=== PATIENT | male | born 1980 | race American Indian/Alaskan Native ===

== ENCOUNTER 2017-01-16 09:56 | Inpatient (IN) | payer OTHER ==
[2017-01-16 10:01] VITALS: BMI 32.5
[2017-01-16] MEDS ORDERED: Sodium Chloride 0.9% 1,000 ML IV STA (10:08)
[2017-01-16] MEDS ORDERED: EnalaprilAT 1.25 mg/ml Inj IVP STA (10:10)
[2017-01-16] MEDS ORDERED: Ciprofloxacin 400mg/200ml D5W 400 MG/200 ML BAG IVPB STA (10:10)
[2017-01-16] MEDS ORDERED: metroNIDAZOLE IV 500 mg/100 ml 500 MG/100 ML BAG IVPB STA (10:11)
--- NOTE | 2017-01-16 10:21 | ED PDOC ---
Arrival/HPI - General Chief Complaint: Abdominal Pain Time Seen by Provider: 01/16/17 10:03 Historian: Patient - History of Present Illness Narrative History of Present Illness (Text): 01/16/17 10:07 A 36 year old male, whose past medical history includes hypertension, presents to the emergency department complaining of left lower quadrant abdominal pain since yesterday. Patient denies any nausea, vomiting, diarrhea, radiation, symptoms, or any other complaints at this time. Patient states he has hypertension but he stopped taking his medication on his own because he did not like how it made him feel. Patient is a smoker and occasional drinks but does not use drugs. Time/Duration: 24 hours Symptom Onset: Sudden Symptom Course: Unchanged Quality: Other Activities at Onset: Rest Context: Home Associated Symptoms (Text): 01/16/17 12:01 Patient developed left lower quadrant abdominal pain yesterday. No nausea vomiting or diarrhea. No genitourinary symptoms. Known hypertension. He stopped taking all of his medications on his own. Past Medical History - Provider Review Nursing Documentation Reviewed: Yes - Infectious Disease Hx of Infectious Diseases: None - Tetanus Immunization Tetanus Immunization: Unknown - Past Medical History Past Medical History: No Previous - Cardiac Hx Hypertension: Yes - Pulmonary Hx Asthma: Yes - Psychiatric Hx Depression: No Hx Emotional Abuse: No Hx Physical Abuse: No Hx Substance Use: No - Past Surgical History Past Surgical History: No Previous - Suicidal Assessment Feels Threatened In Home Enviroment: No Family/Social History - Physician Review Nursing Documentation Reviewed: Yes Family/Social History: Unknown Family HX Smoking Status: Current Some Days Smoker Hx Alcohol Use: Yes Frequency of alcohol use: Socially Hx Substance Use: No Allergies/Home Meds Allergies/Adverse Reactions: Allergies No Known Allergies Allergy (Verified 01/16/17 10:01) Home Medications: Home Meds Medication Instructions Recorded Confirmed No Known Home Med 01/16/17 01/16/17 Review of Systems - Physician Review All systems were reviewed & negative as marked: Yes - Review of Systems Constitutional: Fatigue. absent: Fevers Respiratory: absent: SOB, Cough, Sputum, Wheezing Cardiovascular: absent: Chest Pain, Palpitations, Syncope Gastrointestinal: Abdominal Pain. absent: Diarrhea, Nausea, Vomiting Genitourinary Male: absent: Dysuria, Frequency, Hematuria, Urinary Output Changes Neurological: absent: Headache, Dizziness, Focal Weakness Physical Exam Vital Signs Reviewed: Yes Vital Signs Temp Pulse Resp BP Pulse Ox 01/16/17 12:26 79 16 157/97 H 99 01/16/17 12:13 160/111 H 01/16/17 11:12 97 H 18 172/98 H 98 01/16/17 09:56 98 F 105 H 18 179/123 H 98 Temperature: Afebrile Blood Pressure: Hypertensive Pulse: Tachycardic Respiratory Rate: Normal Appearance: Positive for: Well-Appearing, Non-Toxic, Uncomfortable Pain Distress: Moderate Mental Status: Positive for: Alert and Oriented X 3 - Systems Exam Head: Present: Atraumatic, Normocephalic Pupils: Present: PERRL Extroacular Muscles: Present: EOMI Conjunctiva: Present: Normal Mouth: Present: Moist Mucous Membranes Pharnyx: No: ERYTHEMA, EXUDATE, TONSILS ENLARGED Neck: Present: Normal Range of Motion Respiratory/Chest: Present: Clear to Auscultation, Good Air Exchange. No: Respiratory Distress, Accessory Muscle Use Cardiovascular: Present: Normal S1, S2, Tachycardic. No: Murmurs Abdomen: Present: Tenderness (moderate tenderness with palpation to the left lower quadrant), Normal Bowel Sounds, Guarding. No: Distention, Peritoneal Signs, Rebound Back: No: CVA Tenderness Upper Extremity: Present: Normal Inspection. No: Cyanosis, Edema Lower Extremity: Present: Normal Inspection. No: Edema Neurological: Present: GCS=15, CN II-XII Intact, Speech Normal, Motor Func Grossly Intact Skin: Present: Warm, Dry, Normal Color. No: Rashes Psychiatric: Present: Alert, Oriented x 3, Normal Insight, Normal Concentration Medical Decision Making ED Course and Treatment: 01/16/17 10:07 Impression: A 36 year old male with left lower quadrant pain. Differential Diagnosis include but are not limited to: Colitis vs. IBS vs. Diverticulitis vs. Gastritis Plan: -- EKG -- Abdomen/Pelvis CT -- Chest X-ray -- Labs -- Urinalysis -- Ciprofloxacin, Metronidazole, Pepcid, Toradol, Vasotec and IV Fluids -- Reassess and disposition Progress Notes: 01/16/17 12:02 EKG shows normal sinus rhythm rate approximately [address] or T-wave changes 01/16/17 12:49 Discussed with who will admit to . His resident has been called - Lab Interpretations Lab Results: 01/16/17 11:50 01/16/17 11:50 Lab Results 01/16/17 11:50: Sodium 136, Potassium 3.7, Chloride 98, Carbon Dioxide 27, Anion Gap 15, BUN 8, Creatinine 0.7, Est GFR ( Amer) > 60, Est GFR (Non- Af Amer) > 60, Random Glucose 104, Calcium 9.8, Total Bilirubin 1.4 H, AST 41, ALT 82 H, Alkaline Phosphatase 77, Lactate Dehydrogenase 400, Total Creatine Kinase 294 H, CK-MB (CK-2) 1.2, CK-MB (CK-2) % Cancelled, Troponin I < 0.01, Total Protein 7.2, Albumin 4.0, Globulin 3.2, Albumin/Globulin Ratio 1.3, Amylase 176 H, Lipase 1357 H 01/16/17 11:50: PT 11.1, INR 1.03, APTT 27.8 01/16/17 11:50: WBC 6.6, RBC 6.58 H, Hgb 15.2, Hct 44.6, MCV 67.8 L, MCH 23.1 L , MCHC 34.1, RDW 14.9 H, Plt Count 207, MPV 10.6, Gran % 71.0 H, Lymph % (Auto) 18.4 L, [place] % (Auto) 6.3 H, Eos % (Auto) 4.1, Baso % (Auto) 0.2, Gran # 4.70, Lymph # 1.2, [place] # 0.4, Eos # 0.3, Baso # 0.01 I have reviewed the lab results: Yes - RAD Interpretation Radiology Orders: 01/16/17 10:08 ABD & PELVIS W/O PO OR IV CONT [CT] Stat 01/16/17 10:09 CHEST PORTABLE [RAD] Stat - Medication Orders Current Medication Orders: Sodium Chloride (Sodium Chloride 0.9%) 1,000 mls @ 100 mls/hr IV .Q10H STA Stop: 01/16/17 20:07 Last Admin: 01/16/17 12:02 Dose: 100 mls/hr Discontinued Medications Enalaprilat (Vasotec Iv) 2.5 mg IVP STAT STA Stop: 01/16/17 10:11 Last Admin: 01/16/17 12:13 Dose: 2.5 mg Famotidine (Pepcid) 20 mg IVP STAT STA Stop: 01/16/17 10:09 Last Admin: 01/16/17 12:01 Dose: 20 mg Ciprofloxacin (Cipro 400mg/200ml Dsw) 400 mg in 200 mls @ 133.3 mls/hr IVPB STAT STA PRN Reason: Protocol Stop: 01/16/17 11:40 Metronidazole (Flagyl) 500 mg in 100 mls @ 100 mls/hr IVPB STAT STA PRN Reason: Protocol Stop: 01/16/17 11:10 Last Admin: 01/16/17 12:13 Dose: 100 mls/hr Ketorolac Tromethamine (Toradol) 15 mg IVP STAT STA Stop: 01/16/17 10:09 Last Admin: 01/16/17 12:02 Dose: 15 mg - Scribe Statement The provider has reviewed the documentation as recorded by the Danteibvi Olivares Provider Scribe Attestation: All medical record entries made by the Danteibvi were at my direction and personally dictated by me. I have reviewed the chart and agree that the record accurately reflects my personal performance of the history, physical exam, medical decision making, and the department course for this patient. I have also personally directed, reviewed, and agree with the discharge instructions and disposition. Disposition/Present on Arrival - Present on Arrival Any Indicators Present on Arrival: No History of DVT/PE: No History of Uncontrolled Diabetes: No Urinary Catheter: No History of Decub. Ulcer: No History Surgical Site Infection Following: None - Disposition Have Diagnosis and Disposition been Completed?: Yes Diagnosis: Pancreatitis, Hypertension Disposition: HOSPITALIZED Disposition Time: 12:50 Patient Plan: Admission, Telemetry Condition: FAIR Referrals: Jacklyn Ortega MD [Primary Care Provider] - Follow up with primary
--- NOTE | 2017-01-16 11:18 | CT ---
PROCEDURE: CT Abdomen and Pelvis without intravenous contrast HISTORY: LLQ pain COMPARISON: None. TECHNIQUE: Without contrast. Contrast Dose: Radiation dose: Total exam DLP = 768 mGy-cm. This CT exam was performed using one or more of the following dose reduction techniques: Automated exposure control, adjustment of the mA and/or kV according to patient size, and/or use of iterative reconstruction technique. FINDINGS: LOWER THORAX: Unremarkable. LIVER: There is severe fatty infiltration of the liver and hepatomegaly. The liver measures 25 cm transversely and 22 cm in height. GALLBLADDER AND BILE DUCTS: Unremarkable. PANCREAS: Unremarkable. No gross lesion or ductal dilatation. SPLEEN: Unremarkable. ADRENALS: Unremarkable. No mass. KIDNEYS AND URETERS: Unremarkable. No hydronephrosis. No solid mass. VASCULATURE: Unremarkable. No aortic aneurysm. BOWEL: Unremarkable. No obstruction. No gross mural thickening. APPENDIX: Unremarkable. Normal appendix. PERITONEUM: Unremarkable. No free fluid. No free air. LYMPH NODES: Unremarkable. No enlarged lymph nodes. BLADDER: Unremarkable. REPRODUCTIVE: Unremarkable. BONES: No acute fracture. OTHER FINDINGS: None. IMPRESSION: Severe hepatomegaly and fatty infiltration of the liver.
--- NOTE | 2017-01-16 11:19 | RAD ---
HISTORY: ap COMPARISON: No prior. FINDINGS: LUNGS: No active pulmonary disease. PLEURA: No significant pleural effusion identified, no pneumothorax apparent. CARDIOVASCULAR: Normal. OSSEOUS STRUCTURES: No significant abnormalities. VISUALIZED UPPER ABDOMEN: Normal. OTHER FINDINGS: None. IMPRESSION: No active disease.
[2017-01-16 12:04] LABS: ADD MANUAL DIFF? NO
[2017-01-16 12:09] LABS: BASO # 0.01 K/mm3 (0.0-2.0); BASO % 0.2 % (0.0-3.0); EOS # 0.3 (0.0-0.7); EOS % 4.1 % (1.5-5.0); HEMATOCRIT 44.6 % (42.0-52.0); LYMPH # 1.2 (1.2-3.4); LYMPH % 18.4 % (22.0-35.0); MEAN CELL VOLUME 67.8 fL (80.0-105.0); MEAN CORPUSCULAR HEMOGLOBIN 23.1 pg (25.0-35.0); MEAN CORPUSCULAR HGB CONC 34.1 g/dl (31.0-37.0); MEAN PLATELET VOLUME 10.6 fl (7.0-11.0); MONO # 0.4 (0.1-0.6); MONO % 6.3 % (1.0-6.0); PLATELET COUNT 207 10^3/uL (120.0-450.0); RED CELL DISTRIBUTION WIDTH 14.9 % (11.5-14.5); WHITE BLOOD COUNT 6.6 10^3/ul (4.5-11.0)
[2017-01-16 12:18] LABS: ALB/GLOB RATIO 1.3 (1.1-1.8); ALKALINE PHOSPHATASE 77 U/L (38-133); ALT/SGPT 82 U/L (7-56); AMYLASE 176 U/L (35-125); AST/SGOT 41 U/L (15-59); BILIRUBIN,TOTAL 1.4 mg/dL (0.2-1.3); BLOOD UREA NITROGEN 8 mg/dL (7-21); CALCIUM 9.8 mg/dL (8.4-10.5); CARBON DIOXIDE 27 mmol/L (21-33); CHLORIDE 98 mmol/L (98-107); GFR AFRICAN-AMERICAN > 60; GLUCOSE,RANDOM 104 mg/dL (70-110); LIPASE 1357 U/L (23-300); POTASSIUM 3.7 mmol/L (3.6-5.0); SODIUM 136 mmol/L (132-148); TOTAL PROTEIN 7.2 g/dL (5.8-8.3)
[2017-01-16 12:20] LABS: INR 1.03 (0.93-1.08); PARTIAL THROMBOPLASTIN TIME 27.8 Seconds (23.7-30.8)
[2017-01-16 12:29] LABS: TROPONIN I < 0.01 ng/mL
[2017-01-16 12:56] LABS: PH,URINE 6.5 (4.7-8.0); URINE APPEARANCE CLEAR (CLEAR); URINE BILIRUBIN NEGATIVE (NEGATIVE); URINE BLOOD NEGATIVE (NEGATIVE); URINE COLOR YELLOW (YELLOW); URINE GLUCOSE (UA) NEGATIVE (NEGATIVE); URINE KETONE TRACE mg/dL (NEGATIVE); URINE LEUKOCYTE ESTERASE NEGATIVE Leu/uL (NEGATIVE); URINE PROTEIN 30 mg/dL (<30 mg/dL); URINE UROBILINOGEN 0.2 E.U./dL (<1 E.U./dL)
[2017-01-16 13:04] LABS: URINE BACTERIA FEW (NEG); URINE EPITHELIAL CELLS 0 - 2 /hpf (0-5); URINE RBC NEGATIVE /hpf (0-2); URINE WBC 0 - 2 /hpf (0-6)
--- NOTE | 2017-01-16 14:02 | CP.PCM.HP ---
<Cherry William - Last Filed: 01/16/17 15:20> History of Present Illness - History of Present Illness History of Present Illness: CC: My stomach hurts. Patient is a 36 y/o with PMH of htn, medical non compliance, presenting with left upper quadrant and epigastric pain for 2 days. Patient states the abdominal pain started yesterday, and was accompanied with bloating. The abdominal pain radiates to the back. Patient states he tried taking gas x, peptobismol and laxative with some relief. This AM while at work, the abdominal pain returned, and when he ate bagel the abdominal pain got worst, thus patient decided to come to the ER. Patient admits to nausea, denies vomiting, or diarrhea. Patient denies cp, sob, dysurea, hematuria. Patient admits to constipation. Patient admits to heavy drinking in the past, last alcohol was 2 months ago. Patient reports he has h/o htn, last time he saw PMD was 2 years ago, and has not taking antihypertensive since then. Patient denies headache, dizziness. PMH: htn PSH: None FMH: mom with htn and heart problem. Dad of unknown cause. Allergy: NKDA Home meds: none. Present on Admission - Present on Admission Any Indicators Present on Admission: No History of DVT/PE: No History of Uncontrolled Diabetes: No Urinary Catheter: No Decubitus Ulcer Present: No Review of Systems - Review of Systems All systems: reviewed and no additional remarkable complaints except Review of Systems: As stated in HPI. Past Patient History - Infectious Disease Hx of Infectious Diseases: None - Tetanus Immunizations Tetanus Immunization: Unknown - Past Social History Smoking Status: Light Smoker < 10 Cigarettes Daily Alcohol: Other (former) Drugs: Denies Home Situation {Lives}: With Family - CARDIAC Hx Hypertension: Yes - PULMONARY Hx Asthma: Yes - PSYCHIATRIC Hx Depression: No Hx Emotional Abuse: No Hx Physical Abuse: No Hx Substance Use: No - SURGICAL HISTORY Hx Surgeries: No Meds Allergies/Adverse Reactions: Allergies Allergy/AdvReac Type Severity Reaction Status Date / Time No Known Allergies Allergy Verified 01/16/17 10:01 Physical Exam - Constitutional Appears: No Acute Distress - Head Exam Head Exam: ATRAUMATIC, NORMAL INSPECTION, NORMOCEPHALIC - Eye Exam Eye Exam: EOMI, Normal appearance, PERRL. absent: Scleral icterus - ENT Exam ENT Exam: Mucous Membranes Dry - Neck Exam Neck exam: Positive for: Full Rom, Normal Inspection - Respiratory Exam Respiratory Exam: Clear to Auscultation Bilateral, NORMAL BREATHING PATTERN. absent: Rales, Rhonchi, Wheezes, Respiratory Distress, Stridor - Cardiovascular Exam Cardiovascular Exam: Tachycardia, REGULAR RHYTHM, RRR, +S1, +S2. absent: Systolic Murmur - GI/Abdominal Exam GI & Abdominal Exam: Normal Bowel Sounds, Soft, Tenderness (LUQ and epigastric region.). absent: Distended, Guarding, Rigid - Extremities Exam Extremities exam: Positive for: normal inspection - Back Exam Back exam: NORMAL INSPECTION - Neurological Exam Neurological exam: Alert, Oriented x3 - Psychiatric Exam Psychiatric exam: Normal Affect, Normal Mood - Skin Skin Exam: Dry, Intact, Normal Color, Warm Results - Vital Signs Recent Vital Signs: Last Vital Signs Temp 98 F 01/16/17 09:56 Pulse 79 01/16/17 12:26 Resp 16 01/16/17 12:26 BP 157/97 H 01/16/17 12:26 Pulse Ox 99 01/16/17 12:26 - Labs Result Diagrams: 01/16/17 11:50 01/16/17 11:50 Labs: Laboratory Results - last 24 hr 01/16/17 01/16/17 01/16/17 11:50 11:50 11:50 WBC 6.6 RBC 6.58 H Hgb 15.2 Hct 44.6 MCV 67.8 L MCH 23.1 L MCHC 34.1 RDW 14.9 H Plt Count 207 MPV 10.6 Gran % 71.0 H Lymph % (Auto) 18.4 L [place] % (Auto) 6.3 H Eos % (Auto) 4.1 Baso % (Auto) 0.2 Gran # 4.70 Lymph # 1.2 [place] # 0.4 Eos # 0.3 Baso # 0.01 PT 11.1 INR 1.03 APTT 27.8 Sodium 136 Potassium 3.7 Chloride 98 Carbon Dioxide 27 Anion Gap 15 BUN 8 Creatinine 0.7 Est GFR ( Amer) > 60 Est GFR (Non-Af Amer) > 60 Random Glucose 104 Calcium 9.8 Total Bilirubin 1.4 H AST 41 ALT 82 H Alkaline Phosphatase 77 Lactate Dehydrogenase 400 Total Creatine Kinase 294 H CK-MB (CK-2) 1.2 CK-MB (CK-2) % Cancelled Troponin I < 0.01 Total Protein 7.2 Albumin 4.0 Globulin 3.2 Albumin/Globulin Ratio 1.3 Amylase 176 H Lipase 1357 H Urine Color Urine Appearance Urine pH Ur Specific [place] Urine Protein Urine Glucose (UA) Urine Ketones Urine Blood Urine Nitrate Urine Bilirubin Urine Urobilinogen Ur Leukocyte Esterase Urine RBC Urine WBC Ur Epithelial Cells Urine Bacteria 01/16/17 12:50 WBC RBC Hgb Hct MCV MCH MCHC RDW Plt Count MPV Gran % Lymph % (Auto) [place] % (Auto) Eos % (Auto) Baso % (Auto) Gran # Lymph # [place] # Eos # Baso # PT INR APTT Sodium Potassium Chloride Carbon Dioxide Anion Gap BUN Creatinine Est GFR ( Amer) Est GFR (Non-Af Amer) Random Glucose Calcium Total Bilirubin AST ALT Alkaline Phosphatase Lactate Dehydrogenase Total Creatine Kinase CK-MB (CK-2) CK-MB (CK-2) % Troponin I Total Protein Albumin Globulin Albumin/Globulin Ratio Amylase Lipase Urine Color Yellow Urine Appearance Clear Urine pH 6.5 Ur Specific [place] 1.010 Urine Protein 30 H Urine Glucose (UA) Negative Urine Ketones Trace H Urine Blood Negative Urine Nitrate Negative Urine Bilirubin Negative Urine Urobilinogen 0.2 Ur Leukocyte Esterase Negative Urine RBC Negative Urine WBC 0 - 2 Ur Epithelial Cells 0 - 2 Urine Bacteria Few - EKG Data EKG Interpreted by: Myself EKG shows normal: Sinus rhythm - EKG Data EKG comments: Non pathologic Q wave on lead II, III, and AVF. LVH. Assessment & Plan - Assessment and Plan (Free Text) Assessment: Patient is a 36 y/o with pmh of htn presenting with LUQ abdominal and epigastric pain. Plan: 1)Intractable left upper and epigastric pain radiating to the back likely secondary to pancreatitis - Less likely urinary calculi, or gastritis. - Amylase and lipase elevated at 176/1357. - Ct abdomen and pelvis with severe hepatomegaly and fatty infiltration. - will obtain abdominal u/s to evaluate for cholelithiasis - will obtain utox - npo except meds - zofran prn for nausea/vomiting - Tramadol prn for pain. 2) Transaminitis - Ct result as mentioned above. - hep panel - abdominal u/s - hiv test 3) uncontrolled htn - will start po Norvasc 5 mg and adjust accordingly. 4) DVT and Gi prophylaxis: Heparin sc, and protonix. Patient seen, examined, case discussed with Dr Linares. - Date & Time Date: 01/16/17 Time: 15:05 <Ifeanyi Linares - Last Filed: 02/04/17 18:56> Results - Vital Signs Recent Vital Signs: Last Vital Signs Temp 98.1 F 01/17/17 16:00 Pulse 89 01/17/17 16:00 Resp 20 01/17/17 16:00 BP 141/97 H 01/17/17 16:00 Pulse Ox 98 01/17/17 16:00 - Labs Result Diagrams: 01/18/17 07:00 01/18/17 07:00 Attending/Attestation - Attestation I have personally seen and examined this patient.: Yes I have fully participated in the care of the patient.: Yes I have reviewed all pertinent clinical information: Yes Notes (Text): 02/04/17 18:56 Medical record note made by the resident after discussion with my direction and input after the patient was personally seen and examined by me. I have reviewed the chart and agree that the record accurately reflects by personal performance of the history, physical exam, data review, and medical decision-making, in the course for the patient. I have also personally directed the plan of care.
[2017-01-16] MEDS: Sodium Chloride 0.9% 1,000 ML IV SCH ×2 (15:57→21:24)
--- NOTE | 2017-01-16 16:00 | US ---
HISTORY: pancreatitis COMPARISON: None. TECHNIQUE: Sonographic evaluation of the abdomen. FINDINGS: LIVER: Measures 20 cm. Diffusely increased echogenicity of the liver parenchyma. Consistent with fatty infiltration. Smooth contour. No mass. No intrahepatic biliary dilatation. GALLBLADDER: Unremarkable. No gallstones. COMMON BILE DUCT: Measures 5 mm. No stones. No dilatation. PANCREAS: Unremarkable as visualized. No mass. No ductal dilatation. RIGHT KIDNEY: Measures 10.5cm. Normal echogenicity. No calculus, mass, or hydronephrosis. LEFT KIDNEY: Measures 11.2cm. Normal echogenicity. No calculus, mass, or hydronephrosis. SPLEEN: Normal in size and contour. No mass. AORTA: No aneurysmal dilatation. IVC: Unremarkable. OTHER FINDINGS: None. IMPRESSION: Mild hepatomegaly with diffuse fatty infiltration. Otherwise unremarkable examination. No sonographic evidence of acute pancreatitis.
[2017-01-16] MEDS ORDERED: Pneumococcal 23-Valent Vaccine IM ONE (20:10)
[2017-01-16] MEDS ORDERED: HYDROmorphone 0.5 mg/0.5 ml ISec IVP STA (21:02)
--- NOTE | 2017-01-16 22:40 | CARD ---
APPROVED REPORT EKG Measurement Heart [id number] <Conclusion> Normal sinus rhythm Normal ECG
[2017-01-17] MEDS ORDERED: Pantoprazole 40 mg EC Tab PO SCH (06:30)
[2017-01-17 06:41] VITALS: O2SAT 98
--- NOTE | 2017-01-17 06:42 | CP.PCM.PN ---
<Cherry William - Last Filed: 01/17/17 11:33> Subjective - Date & Time of Evaluation Date of Evaluation: 01/17/17 Time of Evaluation: 07:25 - Subjective Subjective: Medicine progress note for Dr Baxter and Dr Linares. Patient c/o abdominal pain overnight and was giving dose of dilaudid. Patient still c/o abdominal pain, 03/12. Patient admits to nausea, denies vomiting, diarrhea. Patient denies cp, sob, headache or dizziness. Objective - Vital Signs/Intake and Output Vital Signs (last 24 hours): Temp Pulse Resp BP Pulse Ox 98.1 F 81 18 162/103 H 98 01/17/17 06:00 01/17/17 06:00 01/17/17 06:00 01/17/17 06:00 01/17/17 06:00 Intake and Output: 01/16/17 01/17/17 18:59 06:59 Intake Total 0 Output Total 1900 Balance -1900 - Medications Medications: Current Medications Amlodipine Besylate (Norvasc) 10 mg PO DAILY [facility] Heparin Sodium (Porcine) (Heparin) 5,000 units SC Q12 REAL PRN Reason: Protocol Last Admin: 01/16/17 21:23 Dose: 5,000 units Sodium Chloride (Sodium Chloride 0.9%) 1,000 mls @ 150 mls/hr IV .Q6H40M [facility] Last Admin: 01/16/17 21:24 Dose: 150 mls/hr Nicotine (Nicoderm Cq) 1 patch TD DAILY [facility] Ondansetron HCl (Zofran Inj) 4 mg IVP Q4H PRN PRN Reason: Nausea/Vomiting Pantoprazole Sodium (Protonix Ec Tab) 40 mg PO 0630 [facility] Tramadol HCl (Ultram) 50 mg PO Q8 PRN PRN Reason: Pain, moderate (4-7) Last Admin: 01/16/17 17:22 Dose: 50 mg - Labs Labs: PT 11.1 Seconds (9.9-11.8) 01/16/17 11:50 INR 1.03 (0.93-1.08) 01/16/17 11:50 APTT 27.8 Seconds (23.7-30.8) 01/16/17 11:50 - Constitutional Appears: No Acute Distress - Head Exam Head Exam: ATRAUMATIC, NORMAL INSPECTION, NORMOCEPHALIC - Eye Exam Eye Exam: Normal appearance, PERRL. absent: Scleral icterus - ENT Exam ENT Exam: Mucous Membranes Moist - Neck Exam Neck Exam: Normal Inspection - Respiratory Exam Respiratory Exam: Clear to Ausculation Bilateral, NORMAL BREATHING PATTERN. absent: Rales, Rhonchi, Wheezes, Respiratory Distress - Cardiovascular Exam Cardiovascular Exam: REGULAR RHYTHM, RRR, +S1, +S2 - GI/Abdominal Exam GI & Abdominal Exam: Soft, Tenderness (LUQ pain.), Normal Bowel Sounds. absent : Distended, Firm, Guarding, Rigid, Hernia - Extremities Exam Extremities Exam: Normal Inspection. absent: Pedal Edema - Back Exam Back Exam: NORMAL INSPECTION - Neurological Exam Neurological Exam: Alert, Awake, Oriented x3 - Psychiatric Exam Psychiatric exam: Normal Affect, Normal Mood - Skin Skin Exam: Dry, Intact, Normal Color, Warm Assessment and Plan - Assessment and Plan (Free Text) Assessment: Patient is a 36 y/o with pmh of htn presenting with LUQ abdominal and epigastric pain. Plan: 1) Pancreatitis - lipase improving - U/S and CT negative for cholelithiasis - Last alcohol was 2 months ago as per pt, urine etoh negative. - will obtain lipid panel. - zofran prn for nausea/vomiting - Tramadol and morphine prn. 2) Transaminitis - CT and u/s fatty infiltration. - hiv test pending - hep panel pending - Gi on consult 3) uncontrolled htn - will increase norvasc to 10 mg 4) DVT and Gi prophylaxis: Heparin sc, and protonix. Patient seen, examined, case discussed with Dr Linares. <Ifeanyi Linares - Last Filed: 02/04/17 18:57> Objective - Vital Signs/Intake and Output Vital Signs (last 24 hours): Temp Pulse Resp BP Pulse Ox 98.1 F 89 20 141/97 H 98 01/17/17 16:00 01/17/17 16:00 01/17/17 16:00 01/17/17 16:00 01/17/17 16:00 - Labs Labs: 01/18/17 07:00 01/18/17 07:00 PT 11.1 Seconds (9.9-11.8) 01/16/17 11:50 INR 1.03 (0.93-1.08) 01/16/17 11:50 APTT 27.8 Seconds (23.7-30.8) 01/16/17 11:50 Attending/Attestation - Attestation I have personally seen and examined this patient.: Yes I have fully participated in the care of the patient.: Yes I have reviewed all pertinent clinical information, including history, physical exam and plan: Yes Notes (Text): 02/04/17 18:57 Medical record note made by the resident after discussion with my direction and input after the patient was personally seen and examined by me. I have reviewed the chart and agree that the record accurately reflects by personal performance of the history, physical exam, data review, and medical decision-making, in the course for the patient. I have also personally directed the plan of care.
[2017-01-17 08:07] LABS: ADD MANUAL DIFF? NO
[2017-01-17 08:14] LABS: BASO # 0.02 K/mm3 (0.0-2.0); BASO % 0.3 % (0.0-3.0); EOS # 0.4 (0.0-0.7); GRAN # 4.97 (1.4-6.5); GRAN % 70.3 % (50.0-68.0); HEMATOCRIT 43.4 % (42.0-52.0); LYMPH # 1.3 (1.2-3.4); LYMPH % 17.8 % (22.0-35.0); MEAN CELL VOLUME 68.5 fL (80.0-105.0); MEAN CORPUSCULAR HEMOGLOBIN 23.3 pg (25.0-35.0); MEAN CORPUSCULAR HGB CONC 34.1 g/dl (31.0-37.0); MEAN PLATELET VOLUME 10.2 fl (7.0-11.0); MONO # 0.5 (0.1-0.6); MONO % 6.6 % (1.0-6.0); PLATELET COUNT 177 10^3/uL (120.0-450.0); RED CELL DISTRIBUTION WIDTH 14.9 % (11.5-14.5); WHITE BLOOD COUNT 7.1 10^3/ul (4.5-11.0)
[2017-01-17 08:28] LABS: ALB/GLOB RATIO 1.1 (1.1-1.8); ALKALINE PHOSPHATASE 73 U/L (38-133); ALT/SGPT 69 U/L (7-56); AST/SGOT 44 U/L (15-59); BILIRUBIN,TOTAL 1.1 mg/dL (0.2-1.3); BLOOD UREA NITROGEN 4 mg/dL (7-21); CALCIUM 8.8 mg/dL (8.4-10.5); CARBON DIOXIDE 23 mmol/L (21-33); CHLORIDE 102 mmol/L (95-110); GFR AFRICAN-AMERICAN > 60; GLUCOSE,RANDOM 88 mg/dL (70-110); LIPASE 865 U/L (23-300); POTASSIUM 3.9 mmol/L (3.6-5.0); SODIUM 137 mmol/L (132-148); TOTAL PROTEIN 7.2 g/dL (5.8-8.3)
--- NOTE | 2017-01-17 10:03 | CP.PCM.CON ---
<Constantin Núñez - Last Filed: 01/17/17 09:53> History of Present Illness - History of Present Illness History of Present Illness: PGY4 GI Fellow Consult Note Patient is a 36yo male with PMHx significant for HTN who presented to the ED with 2 days of abdominal pain. Pain suddenly began while at work and was predominantly located in the left flank and LUQ along with bloating. He initially had some radiation of pain to the back but since admission this has resolved. He vehemently denies any EtOH use for over 2 months and has never been told he has gallstones previously. He tried using Simethicone, Pepto Bismol and laxatives with modest improvement in symptoms. While at work, he was eating breakfast and developed recurrent pain, nausea and vomiting and thus came to the ED for evaluation where he was noted to have an elevated lipase and has since been admitted and treated for suspected pancreatitis. PMHx: HTN PSHx: Denies FHx: Mother - HTN, CAD Social: Former, heavy/daily EtOH use sober 2 months, 1ppd smoker, denies illicit drug use Endo: No prior endoscopic evaluations Review of Systems - Constitutional Constitutional: absent: Anorexia, Chills, Fever - EENT Eyes: absent: Change in Vision Nose/Mouth/Throat: absent: Sore Throat - Cardiovascular Cardiovascular: absent: Chest Pain, Dyspnea, Edema - Respiratory Respiratory: absent: Cough, Dyspnea, Excessive Mucous Production - Gastrointestinal Gastrointestinal: Abdominal Pain, Bloating, Cramping, Nausea, Vomiting. absent : Constipation, Diarrhea, Dyspepsia, Dysphagia, Fecal Incontinence, Heartburn, Hematemesis, Hematochezia, Loose Stools, Melena - Genitourinary Genitourinary: absent: Dysuria, Urinary Frequency, Urinary Urgency - Musculoskeletal Musculoskeletal: absent: Back Pain, Neck Pain - Integumentary Integumentary: absent: New Lesions, Rash - Neurological Neurological: absent: Dizziness, Numbness, Focal Weakness - Psychiatric Psychiatric: absent: Anxiety, Depression - Endocrine Endocrine: absent: Polydipsia, Polyphagia, Polyuria - Hematologic/Lymphatic Hematologic: absent: Easy Bleeding, Easy Bruising, Lymphadenopathy Past Patient History - Infectious Disease Hx of Infectious Diseases: None - Tetanus Immunizations Tetanus Immunization: Unknown - Past Social History Smoking Status: Light Smoker < 10 Cigarettes Daily - CARDIAC Hx Hypertension: Yes Other/Comment: stopped taking htn meds did not like the way they made him feel - PULMONARY Hx Asthma: Yes - HEENT Hx HEENT Problems: Yes (eyeglasses) - INTEGUMENTARY Other/Comment: lle skin discolorations - MUSCULOSKELETAL/RHEUMATOLOGICAL Hx Falls: No - PSYCHIATRIC Hx Substance Use: No - SURGICAL HISTORY Hx Surgeries: No Meds Allergies/Adverse Reactions: Allergies Allergy/AdvReac Type Severity Reaction Status Date / Time No Known Allergies Allergy Verified 01/16/17 10:01 - Medications Medications: Current Medications Amlodipine Besylate (Norvasc) 10 mg PO DAILY [facility] Heparin Sodium (Porcine) (Heparin) 5,000 units SC Q12 [facility] PRN Reason: Protocol Last Admin: 01/16/17 21:23 Dose: 5,000 units Sodium Chloride (Sodium Chloride 0.9%) 1,000 mls @ 150 mls/hr IV .Q6H40M [facility] Last Admin: 01/16/17 21:24 Dose: 150 mls/hr Morphine Sulfate (Morphine) 1 mg IVP Q4H PRN PRN Reason: Pain, moderate (4-7) Nicotine (Nicoderm Cq) 1 patch TD DAILY [facility] Ondansetron HCl (Zofran Inj) 4 mg IVP Q4H PRN PRN Reason: Nausea/Vomiting Last Admin: 01/17/17 06:48 Dose: 4 mg Pantoprazole Sodium (Protonix Ec Tab) 40 mg PO 0630 [facility] Last Admin: 01/17/17 08:15 Dose: 40 mg Tramadol HCl (Ultram) 50 mg PO Q8 PRN PRN Reason: Pain, moderate (4-7) Last Admin: 01/16/17 17:22 Dose: 50 mg Physical Exam - Constitutional Appears: Non-toxic, No Acute Distress - Eye Exam Eye Exam: EOMI, PERRL - ENT Exam ENT Exam: Mucous Membranes Moist - Respiratory Exam Respiratory Exam: Clear to Auscultation Bilateral. absent: Rales, Rhonchi, Wheezes - Cardiovascular Exam Cardiovascular Exam: RRR, +S1, +S2 - GI/Abdominal Exam GI & Abdominal Exam: Normal Bowel Sounds, Soft, Tenderness (minimal LUQ). absent: Distended, Firm, Guarding, Organomegaly, Rigid - Extremities Exam Extremities exam: Positive for: normal inspection. Negative for: pedal edema - Neurological Exam Neurological exam: Alert, Oriented x3 - Psychiatric Exam Psychiatric exam: Normal Affect, Normal Mood - Skin Skin Exam: Dry, Warm Results - Vital Signs Recent Vital Signs: Last Vital Signs Temp 98.1 F 01/17/17 06:00 Pulse 81 01/17/17 06:00 Resp 18 01/17/17 06:00 BP 162/103 H 01/17/17 06:00 Pulse Ox 98 01/17/17 06:00 - Labs Result Diagrams: 01/17/17 07:45 01/17/17 07:45 Labs: Laboratory Results - last 24 hr 01/16/17 01/16/17 01/16/17 12:50 15:00 16:05 WBC RBC Hgb Hct MCV MCH MCHC RDW Plt Count MPV Gran % Lymph % (Auto) [place] % (Auto) Eos % (Auto) Baso % (Auto) Gran # Lymph # [place] # Eos # Baso # Sodium Potassium Chloride Carbon Dioxide Anion Gap BUN Creatinine Est GFR ( Amer) Est GFR (Non-Af Amer) Random Glucose Calcium Total Bilirubin AST ALT Alkaline Phosphatase Total Protein Albumin Globulin Albumin/Globulin Ratio Lipase TSH 3rd Generation 1.52 Urine Color Yellow Urine Appearance Clear Urine pH 6.5 Ur Specific Campbell 1.010 Urine Protein 30 H Urine Glucose (UA) Negative Urine Ketones Trace H Urine Blood Negative Urine Nitrate Negative Urine Bilirubin Negative Urine Urobilinogen 0.2 Ur Leukocyte Esterase Negative Urine RBC Negative Urine WBC 0 - 2 Ur Epithelial Cells 0 - 2 Urine Bacteria Few Urine Opiates Screen Negative Urine Methadone Screen Negative Ur Barbiturates Screen Negative Ur Phencyclidine Scrn Negative Ur Amphetamines Screen Negative U Benzodiazepines Scrn Negative U Oth Cocaine Metabols Negative U Cannabinoids Screen Negative 01/17/17 01/17/17 07:45 07:45 WBC 7.1 RBC 6.34 H Hgb 14.8 Hct 43.4 MCV 68.5 L MCH 23.3 L MCHC 34.1 RDW 14.9 H Plt Count 177 MPV 10.2 Gran % 70.3 H Lymph % (Auto) 17.8 L [place] % (Auto) 6.6 H Eos % (Auto) 5.0 Baso % (Auto) 0.3 Gran # 4.97 Lymph # 1.3 [place] # 0.5 Eos # 0.4 Baso # 0.02 Sodium 137 Potassium 3.9 Chloride 102 Carbon Dioxide 23 Anion Gap 16 BUN 4 L Creatinine 0.6 Est GFR ( Amer) > 60 Est GFR (Non-Af Amer) > 60 Random Glucose 88 Calcium 8.8 Total Bilirubin 1.1 AST 44 ALT 69 H Alkaline Phosphatase 73 Total Protein 7.2 Albumin 3.8 Globulin 3.5 Albumin/Globulin Ratio 1.1 Lipase 865 H TSH 3rd Generation Urine Color Urine Appearance Urine pH Ur Specific Campbell Urine Protein Urine Glucose (UA) Urine Ketones Urine Blood Urine Nitrate Urine Bilirubin Urine Urobilinogen Ur Leukocyte Esterase Urine RBC Urine WBC Ur Epithelial Cells Urine Bacteria Urine Opiates Screen Urine Methadone Screen Ur Barbiturates Screen Ur Phencyclidine Scrn Ur Amphetamines Screen U Benzodiazepines Scrn U Oth Cocaine Metabols U Cannabinoids Screen Assessment & Plan - Assessment and Plan (Free Text) Assessment: Patient is a 36yo male with PMHx significant for HTN who presented to the ED with 2 days of abdominal pain. -Abdominal pain, does not meet diagnostic criteria for acute pancreatitis -Mild constipation Plan: -Symptoms and imaging not suggestive of pancreatitis, modest elevation in lipase noted -IVF as ordered -Advance diet as tolerated -May benefit from outpatient evaluation with EGD, possibly inpatient if symptoms persist - Date & Time Date: 01/17/17 Time: 09:45 <Carly Lopez MD - Last Filed: 01/17/17 16:26> Meds - Medications Medications: Current Medications Amlodipine Besylate (Norvasc) 10 mg PO DAILY [facility] Last Admin: 01/17/17 10:13 Dose: 10 mg Heparin Sodium (Porcine) (Heparin) 5,000 units SC Q12 [facility] PRN Reason: Protocol Last Admin: 01/17/17 10:14 Dose: 5,000 units Sodium Chloride (Sodium Chloride 0.9%) 1,000 mls @ 150 mls/hr IV .Q6H40M [facility] Last Admin: 01/17/17 10:15 Dose: 150 mls/hr Morphine Sulfate (Morphine) 1 mg IVP Q4H PRN PRN Reason: Pain, moderate (4-7) Last Admin: 01/17/17 15:43 Dose: 1 mg Nicotine (Nicoderm Cq) 1 patch TD DAILY [facility] Last Admin: 01/17/17 10:14 Dose: 1 patch Ondansetron HCl (Zofran Inj) 4 mg IVP Q4H PRN PRN Reason: Nausea/Vomiting Last Admin: 01/17/17 06:48 Dose: 4 mg Pantoprazole Sodium (Protonix Ec Tab) 40 mg PO 0630 [facility] Last Admin: 01/17/17 08:15 Dose: 40 mg Tramadol HCl (Ultram) 50 mg PO Q8 PRN PRN Reason: Pain, moderate (4-7) Last Admin: 01/17/17 12:22 Dose: 50 mg Results - Vital Signs Recent Vital Signs: Last Vital Signs Temp 97 F L 01/17/17 12:00 Pulse 120 H 01/17/17 12:00 Resp 20 01/17/17 12:00 BP 153/99 H 01/17/17 12:00 Pulse Ox 98 01/17/17 06:00 - Labs Result Diagrams: 01/17/17 07:45 01/17/17 07:45 Labs: Laboratory Results - last 24 hr 01/16/17 01/16/17 01/16/17 16:05 16:05 16:05 WBC RBC Hgb Hct MCV MCH MCHC RDW Plt Count MPV Gran % Lymph % (Auto) [place] % (Auto) Eos % (Auto) Baso % (Auto) Gran # Lymph # [place] # Eos # Baso # Sodium Potassium Chloride Carbon Dioxide Anion Gap BUN Creatinine Est GFR ( Amer) Est GFR (Non-Af Amer) Random Glucose Calcium Total Bilirubin AST ALT Alkaline Phosphatase Total Protein Albumin Globulin Albumin/Globulin Ratio Triglycerides Cholesterol LDL Cholesterol Direct HDL Cholesterol Lipase TSH 3rd Generation 1.52 Hepatitis A IgM Ab Negative Hep Bs Antigen Negative Hep B Core IgM Ab Negative Hepatitis C Antibody Negative HIV 1&2 Antibody Screen Negative 01/17/17 01/17/17 01/17/17 07:45 07:45 08:00 WBC 7.1 RBC 6.34 H Hgb 14.8 Hct 43.4 MCV 68.5 L MCH 23.3 L MCHC 34.1 RDW 14.9 H Plt Count 177 MPV 10.2 Gran % 70.3 H Lymph % (Auto) 17.8 L [place] % (Auto) 6.6 H Eos % (Auto) 5.0 Baso % (Auto) 0.3 Gran # 4.97 Lymph # 1.3 [place] # 0.5 Eos # 0.4 Baso # 0.02 Sodium 137 Potassium 3.9 Chloride 102 Carbon Dioxide 23 Anion Gap 16 BUN 4 L Creatinine 0.6 Est GFR ( Amer) > 60 Est GFR (Non-Af Amer) > 60 Random Glucose 88 Calcium 8.8 Total Bilirubin 1.1 AST 44 ALT 69 H Alkaline Phosphatase 73 Total Protein 7.2 Albumin 3.8 Globulin 3.5 Albumin/Globulin Ratio 1.1 Triglycerides 195 H Cholesterol 167 LDL Cholesterol Direct 111 HDL Cholesterol 36 Lipase 865 H TSH 3rd Generation Hepatitis A IgM Ab Hep Bs Antigen Hep B Core IgM Ab Hepatitis C Antibody HIV 1&2 Antibody Screen Attending/Attestation - Attestation I have personally seen and examined this patient.: Yes I have fully participated in the care of the patient.: Yes I have reviewed all pertinent clinical information: Yes Notes (Text): 01/17/17 16:23 Patient seen with GI fellow. This is a 36 yr old M admitted with LUQ pain non radiating and elevated with lipase with no evidence of pancreatitis on CT non contrast. Has history of alcohol abuse now abstinent for past 2 months as per patient. Will treat as mild pancreatitis with IVF and advance diet as tolerated. Alcohol cessation. Send hepatitis serologies in setting of elevated transminases.
[2017-01-17] MEDS: Morphine 2 mg/ml ISec IVP PRN ×3 (10:12→20:19)
[2017-01-17] MEDS: Sodium Chloride 0.9% 1,000 ML IV SCH ×3 (10:15→18:16)
[2017-01-17 12:03] LABS: CHOLESTEROL 167 mg/dL (130-200)
[2017-01-17 12:21] VITALS: RESP 20
[2017-01-17] MEDS ORDERED: POLYETHYLENE GLYCOL 3350 17 GM/Dose PACKET PO SCH (16:30)
[2017-01-17 17:22] VITALS: BP 141/97; PULSE 89; TEMP 98.1
[2017-01-19 10:25] LABS: ALB/GLOB RATIO 1.1 (1.1-1.8); ALKALINE PHOSPHATASE 83 U/L (38-133); ALT/SGPT 58 U/L (7-56); AST/SGOT 40 U/L (15-59); BILIRUBIN,TOTAL 1.4 mg/dL (0.2-1.3); BLOOD UREA NITROGEN 3 mg/dL (7-21); CALCIUM 9.7 mg/dL (8.4-10.5); CARBON DIOXIDE 28 mmol/L (21-33); CHLORIDE 97 mmol/L (98-107); GFR AFRICAN-AMERICAN > 60; GLUCOSE,RANDOM 79 mg/dL (70-110); MAGNESIUM 2.2 mg/dL (1.7-2.2); PHOSPHOROUS 3.3 mg/dL (2.5-4.5); POTASSIUM 4.2 mmol/L (3.6-5.0); SODIUM 137 mmol/L (132-148); TOTAL PROTEIN 7.9 g/dL (5.8-8.3)
--- NOTE | 2017-01-19 11:43 | CP.PCM.DIS ---
<DaysihenryCherry concepcion - Last Filed: 01/22/17 19:15> Provider - Provider Date of Admission: 01/16/17 12:47 Attending physician: Carmelo Baxter MD Primary care physician: Jacklyn Ortega MD Consults: GI Time Spent in preparation of Discharge (in minutes): 50 Diagnosis - Discharge Diagnosis (1) Hypertension Status: Acute (2) Pancreatitis Status: Acute (3) Dyslipidemia Status: Acute (4) Fatty (change of) liver, not elsewhere classified Status: Acute (5) Hepatomegaly Status: Acute Hospital Course - Lab Results Lab Results: Most Recent Lab Values WBC 7.1 10^3/ul (4.5-11.0) 01/17/17 07:45 RBC 6.34 10^6/uL (3.5-6.1) H 01/17/17 07:45 Hgb 14.8 gm/dL (14.0-18.0) 01/17/17 07:45 Hct 43.4 % (42.0-52.0) 01/17/17 07:45 MCV 68.5 fL (80.0-105.0) L 01/17/17 07:45 MCH 23.3 pg (25.0-35.0) L 01/17/17 07:45 MCHC 34.1 g/dl (31.0-37.0) 01/17/17 07:45 RDW 14.9 % (11.5-14.5) H 01/17/17 07:45 Plt Count 177 10^3/uL (120.0-450.0) 01/17/17 07:45 MPV 10.2 fl (7.0-11.0) 01/17/17 07:45 Gran % 70.3 % (50.0-68.0) H 01/17/17 07:45 Lymph % (Auto) 17.8 % (22.0-35.0) L 01/17/17 07:45 Sp[place]ding % (Auto) 6.6 % (1.0-6.0) H 01/17/17 07:45 Eos % (Auto) 5.0 % (1.5-5.0) 01/17/17 07:45 Baso % (Auto) 0.3 % (0.0-3.0) 01/17/17 07:45 Gran # 4.97 (1.4-6.5) 01/17/17 07:45 Lymph # 1.3 (1.2-3.4) 01/17/17 07:45 [place] # 0.5 (0.1-0.6) 01/17/17 07:45 Eos # 0.4 (0.0-0.7) 01/17/17 07:45 Baso # 0.02 K/mm3 (0.0-2.0) 01/17/17 07:45 PT 11.1 Seconds (9.9-11.8) 01/16/17 11:50 INR 1.03 (0.93-1.08) 01/16/17 11:50 APTT 27.8 Seconds (23.7-30.8) 01/16/17 11:50 Sodium 137 mmol/L (132-148) 01/18/17 07:00 Potassium 4.2 mmol/L (3.6-5.0) 01/18/17 07:00 Chloride 97 mmol/L (98-107) L 01/18/17 07:00 Carbon Dioxide 28 mmol/L (21-33) 01/18/17 07:00 Anion Gap 16 (10-20) 01/18/17 07:00 BUN 3 mg/dL (7-21) L 01/18/17 07:00 Creatinine 0.8 mg/dL (0.5-1.4) 01/18/17 07:00 Est GFR ( Amer) > 60 01/18/17 07:00 Est GFR (Non-Af Amer) > 60 01/18/17 07:00 Random Glucose 79 mg/dL (70-110) 01/18/17 07:00 Calcium 9.7 mg/dL (8.4-10.5) 01/18/17 07:00 Phosphorus 3.3 mg/dL (2.5-4.5) 01/18/17 07:00 Magnesium 2.2 mg/dL (1.7-2.2) 01/18/17 07:00 Total Bilirubin 1.4 mg/dL (0.2-1.3) H 01/18/17 07:00 AST 40 U/L (15-59) 01/18/17 07:00 ALT 58 U/L (7-56) H 01/18/17 07:00 Alkaline Phosphatase 83 U/L (38-133) 01/18/17 07:00 Lactate Dehydrogenase 400 U/L (333-699) 01/16/17 11:50 Total Creatine Kinase 294 U/L (35-230) H 01/16/17 11:50 CK-MB (CK-2) 1.2 ng/mL (0.0-3.6) 01/16/17 11:50 CK-MB (CK-2) % Cancelled 01/16/17 11:50 Troponin I < 0.01 ng/mL 01/16/17 11:50 Total Protein 7.9 g/dL (5.8-8.3) 01/18/17 07:00 Albumin 4.1 g/dL (3.0-4.8) 01/18/17 07:00 Globulin 3.8 gm/dL 01/18/17 07:00 Albumin/Globulin Ratio 1.1 (1.1-1.8) 01/18/17 07:00 Triglycerides 195 mg/dL (35-160) H 01/17/17 08:00 Cholesterol 167 mg/dL (130-200) 01/17/17 08:00 LDL Cholesterol Direct 111 mg/dL (0-129) 01/17/17 08:00 HDL Cholesterol 36 mg/dL (29-60) 01/17/17 08:00 Amylase 176 U/L (35-125) H 01/16/17 11:50 Lipase 621 U/L (23-300) H 01/18/17 07:00 TSH 3rd Generation 1.52 mIU/mL (0.46-4.68) 01/16/17 16:05 Urine Color Yellow (YELLOW) 01/16/17 12:50 Urine Appearance Clear (CLEAR) 01/16/17 12:50 Urine pH 6.5 (4.7-8.0) 01/16/17 12:50 Ur Specific Girard 1.010 (1.005-1.035) 01/16/17 12:50 Urine Protein 30 mg/dL (<30 mg/dL) H 01/16/17 12:50 Urine Glucose (UA) Negative mg/dL (NEGATIVE) 01/16/17 12:50 Urine Ketones Trace mg/dL (NEGATIVE) H 01/16/17 12:50 Urine Blood Negative (NEGATIVE) 01/16/17 12:50 Urine Nitrate Negative (NEGATIVE) 01/16/17 12:50 Urine Bilirubin Negative (NEGATIVE) 01/16/17 12:50 Urine Urobilinogen 0.2 E.U./dL (<1 E.U./dL) 01/16/17 12:50 Ur Leukocyte Esterase Negative Stanley/uL (NEGATIVE) 01/16/17 12:50 Urine RBC Negative /hpf (0-2) 01/16/17 12:50 Urine WBC 0 - 2 /hpf (0-6) 01/16/17 12:50 Ur Epithelial Cells 0 - 2 /hpf (0-5) 01/16/17 12:50 Urine Bacteria Few (NEG) 01/16/17 12:50 Urine Opiates Screen Negative (NEGATIVE) 01/16/17 15:00 Urine Methadone Screen Negative (NEGATIVE) 01/16/17 15:00 Ur Barbiturates Screen Negative (NEGATIVE) 01/16/17 15:00 Ur Phencyclidine Scrn Negative (NEGATIVE) 01/16/17 15:00 Ur Amphetamines Screen Negative (NEGATIVE) 01/16/17 15:00 U Benzodiazepines Scrn Negative (NEGATIVE) 01/16/17 15:00 U Oth Cocaine Metabols Negative (NEGATIVE) 01/16/17 15:00 U Cannabinoids Screen Negative (NEGATIVE) 01/16/17 15:00 Hepatitis A IgM Ab Negative (NEGATIVE) 01/16/17 16:05 Hep Bs Antigen Negative (NEGATIVE) 01/16/17 16:05 Hep B Core IgM Ab Negative (NEGATIVE) 01/16/17 16:05 Hepatitis C Antibody Negative (NEGATIVE) 01/16/17 16:05 HIV 1&2 Antibody Screen Negative (NEGATIVE) 01/16/17 16:05 - Hospital Course Hospital Course: Patient is a 36 y/o with PMH of htn ( not on meds) whom presented with abdominal pain and was found to have acute pancreatitis . Patient also had hypertension with SBP in the 170s. Patient was admitted and was hydrated, made npo, and advanced diet as tolerated. Patient underwent CT and abdominal u/s, which severe fatty liver and hepatomegaly. Hep panel was normal. Patient admitted to alcohol abuse in the past, but reported last intake was 2 months ago. utox and etoh level was normal. Lipid panel revealed dyslipidemia which is most likely the source of patient's pancreatitis. Gi was following patient, recommended outpatient follow up. Patient's lipase trended down to 600s. Discussed with the patient about the fact that his enzymes was still quit elevated, patient expressed the preference of going home instead of staying in the hospital, and understands that if he goes home prematurely and continue to eat fatty food, the abdominal pain will worsen. Patient was discharged and will follow up with Gi and PMD. Patient also understands the importance of avoiding fatty food. - Date & Time of H&P Date of H&P: 01/16/17 Time of H&P: 14:01 Discharge Exam - Head Exam Head Exam: ATRAUMATIC, NORMAL INSPECTION, NORMOCEPHALIC - Eye Exam Eye Exam: EOMI, Normal appearance, PERRL. absent: Scleral icterus - ENT Exam ENT Exam: Mucous Membranes Moist - Neck Exam Neck exam: Normal Inspection - Respiratory Exam Respiratory Exam: Clear to PA & Lateral, NORMAL BREATHING PATTERN, UNREMARKABLE. absent: Rales, Rhonchi, Wheezes, Respiratory Distress, Stridor - Cardiovascular Exam Cardiovascular Exam: REGULAR RHYTHM, RRR, +S1, +S2 - GI/Abdominal Exam GI & Abdominal Exam: Normal Bowel Sounds, Unremarkable. absent: Distended, Firm , Guarding, Rigid, Soft, Tenderness - Extremities Exam Extremities exam: normal inspection - Back Exam Back exam: NORMAL INSPECTION - Neurological Exam Neurological exam: Alert, Oriented x3 - Psychiatric Exam Psychiatric exam: Normal Affect, Normal Mood - Skin Skin Exam: Dry, Intact, Normal Color, Warm Discharge Plan - Follow Up Plan Condition: FAIR Disposition: HOME/ ROUTINE Patient education suggested?: Yes Referrals: Jacklyn Ortega MD [Primary Care Provider] - <Carmelo Baxter - Last Filed: 02/07/17 13:43> Provider - Provider Date of Admission: 01/16/17 12:47 Attending physician: Carmelo Baxter MD Primary care physician: Jacklyn Ortega MD Hospital Course - Lab Results Lab Results: Most Recent Lab Values WBC 10.0 10^3/ul (4.5-11.0) D 01/18/17 07:00 RBC 6.52 10^6/uL (3.5-6.1) H 01/18/17 07:00 Hgb 15.1 gm/dL (14.0-18.0) 01/18/17 07:00 Hct 44.9 % (42.0-52.0) 01/18/17 07:00 MCV 68.9 fL (80.0-105.0) L 01/18/17 07:00 MCH 23.2 pg (25.0-35.0) L 01/18/17 07:00 MCHC 33.6 g/dl (31.0-37.0) 01/18/17 07:00 RDW 15.1 % (11.5-14.5) H 01/18/17 07:00 Plt Count 177 10^3/uL (120.0-450.0) 01/18/17 07:00 MPV 10.2 fl (7.0-11.0) 01/17/17 07:45 Gran % 70.3 % (50.0-68.0) H 01/17/17 07:45 Lymph % (Auto) 17.8 % (22.0-35.0) L 01/17/17 07:45 [place] % (Auto) 6.6 % (1.0-6.0) H 01/17/17 07:45 Eos % (Auto) 5.0 % (1.5-5.0) 01/17/17 07:45 Baso % (Auto) 0.3 % (0.0-3.0) 01/17/17 07:45 Gran # 4.97 (1.4-6.5) 01/17/17 07:45 Lymph # 1.3 (1.2-3.4) 01/17/17 07:45 [place] # 0.5 (0.1-0.6) 01/17/17 07:45 Eos # 0.4 (0.0-0.7) 01/17/17 07:45 Baso # 0.02 K/mm3 (0.0-2.0) 01/17/17 07:45 PT 11.1 Seconds (9.9-11.8) 01/16/17 11:50 INR 1.03 (0.93-1.08) 01/16/17 11:50 APTT 27.8 Seconds (23.7-30.8) 01/16/17 11:50 Sodium 137 mmol/L (132-148) 01/18/17 07:00 Potassium 4.2 mmol/L (3.6-5.0) 01/18/17 07:00 Chloride 97 mmol/L (98-107) L 01/18/17 07:00 Carbon Dioxide 28 mmol/L (21-33) 01/18/17 07:00 Anion Gap 16 (10-20) 01/18/17 07:00 BUN 3 mg/dL (7-21) L 01/18/17 07:00 Creatinine 0.8 mg/dL (0.5-1.4) 01/18/17 07:00 Est GFR ( Amer) > 60 01/18/17 07:00 Est GFR (Non-Af Amer) > 60 01/18/17 07:00 Random Glucose 79 mg/dL (70-110) 01/18/17 07:00 Calcium 9.7 mg/dL (8.4-10.5) 01/18/17 07:00 Phosphorus 3.3 mg/dL (2.5-4.5) 01/18/17 07:00 Magnesium 2.2 mg/dL (1.7-2.2) 01/18/17 07:00 Total Bilirubin 1.4 mg/dL (0.2-1.3) H 01/18/17 07:00 AST 40 U/L (15-59) 01/18/17 07:00 ALT 58 U/L (7-56) H 01/18/17 07:00 Alkaline Phosphatase 83 U/L (38-133) 01/18/17 07:00 Lactate Dehydrogenase 400 U/L (333-699) 01/16/17 11:50 Total Creatine Kinase 294 U/L (35-230) H 01/16/17 11:50 CK-MB (CK-2) 1.2 ng/mL (0.0-3.6) 01/16/17 11:50 CK-MB (CK-2) % Cancelled 01/16/17 11:50 Troponin I < 0.01 ng/mL 01/16/17 11:50 Total Protein 7.9 g/dL (5.8-8.3) 01/18/17 07:00 Albumin 4.1 g/dL (3.0-4.8) 01/18/17 07:00 Globulin 3.8 gm/dL 01/18/17 07:00 Albumin/Globulin Ratio 1.1 (1.1-1.8) 01/18/17 07:00 Triglycerides 195 mg/dL (35-160) H 01/17/17 08:00 Cholesterol 167 mg/dL (130-200) 01/17/17 08:00 LDL Cholesterol Direct 111 mg/dL (0-129) 01/17/17 08:00 HDL Cholesterol 36 mg/dL (29-60) 01/17/17 08:00 Amylase 176 U/L (35-125) H 01/16/17 11:50 Lipase 621 U/L (23-300) H 01/18/17 07:00 TSH 3rd Generation 1.52 mIU/mL (0.46-4.68) 01/16/17 16:05 Urine Color Yellow (YELLOW) 01/16/17 12:50 Urine Appearance Clear (CLEAR) 01/16/17 12:50 Urine pH 6.5 (4.7-8.0) 01/16/17 12:50 Ur Specific Girard 1.010 (1.005-1.035) 01/16/17 12:50 Urine Protein 30 mg/dL (<30 mg/dL) H 01/16/17 12:50 Urine Glucose (UA) Negative mg/dL (NEGATIVE) 01/16/17 12:50 Urine Ketones Trace mg/dL (NEGATIVE) H 01/16/17 12:50 Urine Blood Negative (NEGATIVE) 01/16/17 12:50 Urine Nitrate Negative (NEGATIVE) 01/16/17 12:50 Urine Bilirubin Negative (NEGATIVE) 01/16/17 12:50 Urine Urobilinogen 0.2 E.U./dL (<1 E.U./dL) 01/16/17 12:50 Ur Leukocyte Esterase Negative Stanley/uL (NEGATIVE) 01/16/17 12:50 Urine RBC Negative /hpf (0-2) 01/16/17 12:50 Urine WBC 0 - 2 /hpf (0-6) 01/16/17 12:50 Ur Epithelial Cells 0 - 2 /hpf (0-5) 01/16/17 12:50 Urine Bacteria Few (NEG) 01/16/17 12:50 Urine Opiates Screen Negative (NEGATIVE) 01/16/17 15:00 Urine Methadone Screen Negative (NEGATIVE) 01/16/17 15:00 Ur Barbiturates Screen Negative (NEGATIVE) 01/16/17 15:00 Ur Phencyclidine Scrn Negative (NEGATIVE) 01/16/17 15:00 Ur Amphetamines Screen Negative (NEGATIVE) 01/16/17 15:00 U Benzodiazepines Scrn Negative (NEGATIVE) 01/16/17 15:00 U Oth Cocaine Metabols Negative (NEGATIVE) 01/16/17 15:00 U Cannabinoids Screen Negative (NEGATIVE) 01/16/17 15:00 U Ethyl Alcohol Screen None detected mg/dL 01/16/17 20:18 Hepatitis A IgM Ab Negative (NEGATIVE) 01/16/17 16:05 Hep Bs Antigen Negative (NEGATIVE) 01/16/17 16:05 Hep B Core IgM Ab Negative (NEGATIVE) 01/16/17 16:05 Hepatitis C Antibody Negative (NEGATIVE) 01/16/17 16:05 HIV 1&2 Antibody Screen Negative (NEGATIVE) 01/16/17 16:05 Attending/Attestation - Attestation I have personally seen and examined this patient.: Yes I have fully participated in the care of the patient.: Yes I have reviewed all pertinent clinical information, including history, physical exam and plan: Yes Notes (Text): 02/07/17 13:43 Resident note done after seen and examined by me with discussion. The note is a representation of my history, physical and plan for patient.
[2017-01-19 12:08] LABS: HEMATOCRIT 44.9 % (42.0-52.0); MEAN CELL VOLUME 68.9 fL (80.0-105.0); MEAN CORPUSCULAR HEMOGLOBIN 23.2 pg (25.0-35.0); MEAN CORPUSCULAR HGB CONC 33.6 g/dl (31.0-37.0); PLATELET COUNT 177 10^3/uL (120.0-450.0); RED CELL DISTRIBUTION WIDTH 15.1 % (11.5-14.5)
== END 2017-01-18 16:40 | disposition home or self-care (01) | DRG 440 ==
LOC: ED 09:56 → ERH 12:47 → 2RNO 16:20 → 5RNO 01-17 14:35
PROVIDERS: ADMIT Internal Medicine; ATTEND Internal Medicine
DX: K85.90 Acute pancreatitis without necrosis or infection, unspecified (principal); K76.0 Fatty (change of) liver, not elsewhere classified; I10 Essential (primary) hypertension; Z87.898 Personal history of other specified conditions; E78.1 Pure hyperglyceridemia; F17.200 Nicotine dependence, unspecified, uncomplicated; J45.909 Unspecified asthma, uncomplicated; K59.00 Constipation, unspecified; Z82.49 Family history of ischemic heart disease and other diseases of the circulatory system; Z91.19 Patient's noncompliance with other medical treatment and regimen; R00.0 Tachycardia, unspecified; R74.0 Nonspecific elevation of levels of transaminase and lactic acid dehydrogenase [LDH]; R11.2 Nausea with vomiting, unspecified

== ENCOUNTER 2017-05-14 03:57 | Emergency (ER) | payer OTHER ==
[2017-05-14 14:42] VITALS: BMI 26.2
== END 2017-05-14 04:48 | disposition left against medical advice (07) ==
LOC: ED 03:57
DX: Z02.89 Encounter for other administrative examinations (principal); R52 Pain, unspecified

== ENCOUNTER 2017-05-14 04:50 | Emergency (ER) | payer OTHER ==
[2017-05-14 04:50] VITALS: BMI 32.5
--- NOTE | 2017-05-14 05:34 | ED PDOC ---
Arrival/HPI - General Chief Complaint: Abdominal Pain Time Seen by Provider: 05/14/17 05:05 Historian: Patient - History of Present Illness Narrative History of Present Illness (Text): 05/14/17 05:31 Alton Hannon is a 36 year old male, whose past medical history includes hypertension and pancreatitis, who presents to the ED complaining of mid to upper abdominal pain since waking up yesterday morning. Patient states symptoms are similar in quality to previous episodes of pancreatitis but denies drinking alcohol recently. Patient denies any fever, chills, vomiting, diarrhea, urinary symptoms, chest pain, shortness of breath, or any other complaints. Time/Duration: Other (yesterday morning) Symptom Onset: Gradual Symptom Course: Unchanged Activities at Onset: Light Context: Home Past Medical History - Provider Review Nursing Documentation Reviewed: Yes - Infectious Disease Hx of Infectious Diseases: None - Tetanus Immunization Tetanus Immunization: Unknown - Past Medical History Past Medical History: No Previous - Cardiac Hx Hypertension: Yes Other/Comment: stopped taking htn meds did not like the way they made him feel - Pulmonary Hx Asthma: Yes - HEENT Hx HEENT Disorder: Yes (eyeglasses) - Integumentary Other/Comment: lle skin discolorations - Musculoskeletal/Rheumatological Hx Falls: No - Psychiatric Hx Depression: No Hx Emotional Abuse: No Hx Physical Abuse: No Hx Substance Use: No - Past Surgical History Past Surgical History: No Previous - Suicidal Assessment Feels Threatened In Home Enviroment: No Family/Social History - Physician Review Nursing Documentation Reviewed: Yes Family/Social History: Unknown Family HX Smoking Status: Light Smoker < 10 Cigarettes Daily Hx Alcohol Use: Yes (occasional) Hx Substance Use: No Allergies/Home Meds Allergies/Adverse Reactions: Allergies No Known Allergies Allergy (Verified 01/16/17 10:01) Home Medications: Home Meds Medication Instructions Recorded Confirmed No Known Home Med 01/16/17 05/14/17 Review of Systems - Physician Review All systems were reviewed & negative as marked: Yes - Review of Systems Constitutional: Normal. absent: Fevers Eyes: Normal ENT: Normal Respiratory: Normal. absent: SOB, Cough Cardiovascular: Normal. absent: Chest Pain Gastrointestinal: Abdominal Pain. absent: Diarrhea, Nausea, Vomiting Genitourinary Male: Normal. absent: Dysuria, Frequency, Hematuria, Urinary Output Changes Musculoskeletal: Normal. absent: Back Pain, Neck Pain Skin: Normal. absent: Rash Neurological: Normal. absent: Headache, Dizziness Endocrine: Normal Hemo/Lymphatic: Normal Psychiatric: Normal Physical Exam Vital Signs Reviewed: Yes Vital Signs Temp Pulse Resp BP Pulse Ox 05/14/17 04:56 97.7 F 72 18 168/92 H 98 Temperature: Afebrile Blood Pressure: Normal Pulse: Regular Respiratory Rate: Normal Appearance: Positive for: Well-Appearing, Non-Toxic, Comfortable Pain Distress: None Mental Status: Positive for: Alert and Oriented X 3 - Systems Exam Head: Present: Atraumatic, Normocephalic Pupils: Present: PERRL Extroacular Muscles: Present: EOMI Conjunctiva: Present: Normal Mouth: Present: Moist Mucous Membranes Neck: Present: Normal Range of Motion Respiratory/Chest: Present: Clear to Auscultation, Good Air Exchange. No: Respiratory Distress, Accessory Muscle Use Cardiovascular: Present: Regular Rate and Rhythm, Normal S1, S2. No: Murmurs Abdomen: Present: Tenderness (Mid/upper abdominal tenderness), Normal Bowel Sounds. No: Distention, Peritoneal Signs Back: Present: Normal Inspection Upper Extremity: Present: Normal Inspection. No: Cyanosis, Edema Lower Extremity: Present: Normal Inspection. No: Edema Neurological: Present: GCS=15, CN II-XII Intact, Speech Normal Skin: Present: Warm, Dry, Normal Color. No: Rashes Psychiatric: Present: Alert, Oriented x 3, Normal Insight, Normal Concentration Medical Decision Making ED Course and Treatment: 05/14/17 05:31 Impression: 36 year old male c/o mid/upper abdominal pain since yesterday morning. Plan: -- EKG -- CXR -- Labs, lipase -- IV fluids -- Pepcid -- Toradol -- Reassess and disposition Progress Notes: 05/14/17 06:08 Reviewed EKG, NSR at [address] segment elevation or depression, no T wave inversions, normal intervals. - Lab Interpretations Lab Results: 05/14/17 05:52 Lab Results 05/14/17 05:52: WBC 7.1 D, RBC 6.71 H, Hgb 16.3, Hct 46.9, MCV 69.9 L, MCH 24.3 L, MCHC 34.8, RDW 14.6 H, Plt Count 196, MPV 10.4 I have reviewed the lab results: Yes - RAD Interpretation Narrative RAD Interpretations (Text): 05/14/17 06:35 CXR- No acute process Radiology Orders: 05/14/17 05:39 CHEST PORTABLE [RAD] Stat 05/14/17 06:36 ABD & PELVIS IV CONTRAST ONLY [CT] Stat Cuff Slitter: ED Physician - EKG Interpretation Interpreted by ED Physician: Yes Type: 12 lead EKG - Medication Orders Current Medication Orders: Sodium Chloride (Sodium Chloride 0.9%) 1,000 mls @ 999 mls/hr IV .Q1H1M STA Stop: 05/14/17 06:42 Last Admin: 05/14/17 06:07 Dose: 999 mls/hr Discontinued Medications Famotidine (Pepcid) 20 mg IVP STAT STA Stop: 05/14/17 05:43 Last Admin: 05/14/17 06:07 Dose: 20 mg Ketorolac Tromethamine (Toradol) 30 mg IVP ONCE ONE Stop: 05/14/17 05:43 Last Admin: 05/14/17 06:07 Dose: 30 mg - Transfer of Care Patient signed out to Dr:: Kirsten Pending Labs:: labs/CT Abd/Pelvis/reassess/final disposition - Scribe Statement The provider has reviewed the documentation as recorded by the Scribvi Campuzano All medical record entries made by the Scribe were at my direction and personally dictated by me. I have reviewed the chart and agree that the record accurately reflects my personal performance of the history, physical exam, medical decision making, and the department course for this patient. I have also personally directed, reviewed, and agree with the discharge instructions and disposition. Disposition/Present on Arrival - Present on Arrival Any Indicators Present on Arrival: No History of DVT/PE: No History of Uncontrolled Diabetes: No Urinary Catheter: No History of Decub. Ulcer: No History Surgical Site Infection Following: None - Disposition Have Diagnosis and Disposition been Completed?: No Diagnosis: Abdominal pain Disposition Time: 07:00 Condition: STABLE Forms: Admittedly (Estonian)
[2017-05-14] MEDS ORDERED: Sodium Chloride 0.9% 1,000 ML IV STA (05:42)
[2017-05-14 06:21] LABS: HEMATOCRIT 46.9 % (42.0-52.0); MEAN CELL VOLUME 69.9 fl (80.0-105.0); MEAN CORPUSCULAR HEMOGLOBIN 24.3 pg (25.0-35.0); MEAN CORPUSCULAR HGB CONC 34.8 g/dl (31.0-37.0); MEAN PLATELET VOLUME 10.4 fl (7.0-11.0); RED CELL DISTRIBUTION WIDTH 14.6 % (11.5-14.5); WHITE BLOOD COUNT 7.1 10^3/ul (4.5-11.0)
[2017-05-14 06:42] LABS: ALB/GLOB RATIO 1.3 (1.1-1.8); ALKALINE PHOSPHATASE 77 U/L (38-126); ALT/SGPT 59 U/L (7-56); AST/SGOT 45 U/L (17-59); BILIRUBIN,TOTAL 1.4 mg/dL (0.2-1.3); BLOOD UREA NITROGEN 8 mg/dL (7-21); CALCIUM 9.5 mg/dL (8.4-10.5); CARBON DIOXIDE 24 mmol/L (21-33); CHLORIDE 99 mmol/L (95-110); GFR AFRICAN-AMERICAN > 60; GLUCOSE,RANDOM 96 mg/dL (70-110); LIPASE 571 U/L (23-300); POTASSIUM 3.4 mmol/L (3.6-5.0); SODIUM 135 mmol/L (132-148); TOTAL PROTEIN 7.8 g/dL (5.8-8.3)
[2017-05-14] MEDS ORDERED: Iohexol 350 MG/100 ML VIAL ONE (07:27)
--- NOTE | 2017-05-14 07:38 | ED PDOC ---
Physical Exam Vital Signs Temp Pulse Resp BP Pulse Ox 05/14/17 07:49 98.0 F 78 16 150/99 H 97 05/14/17 04:56 97.7 F 72 18 168/92 H 98 Medical Decision Making ED Course and Treatment: 05/14/17 07: 36 y/o male who presents to the ED with complains of mid to upper abdominal pain since 1 day ago was evaluated and is currently pending lab work and a CT scan. 05/14/17 08:20 CXR: Creator: KATHY PEDROZA MD COMPARISON: 01/16/2017 FINDINGS: LUNGS: No active pulmonary disease. PLEURA: No significant pleural effusion identified, no pneumothorax apparent. CARDIOVASCULAR: Normal. OSSEOUS STRUCTURES: No significant abnormalities. VISUALIZED UPPER ABDOMEN: Normal. OTHER FINDINGS: None. IMPRESSION: No active disease. 05/14/17 08:25 CT Abdomen and Pelvis: Creator : KATHY PEDROZA MD COMPARISON: 01/16/2017 FINDINGS: LOWER THORAX:Unremarkable. LIVER:Mild hepatomegaly. Diffusely diminished attenuation consistent with fatty infiltration. No focal mass. No biliary ductal dilatation. GALLBLADDER AND BILE DUCTS:Unremarkable. PANCREAS:Mildly enlarged pancreas, diffusely with peripancreatic fluid/ edema consistent with acute pancreatitis. No pancreatic ductal dilatation. No focal mass. SPLEEN:Unremarkable. ADRENALS:Unremarkable. No mass. KIDNEYS AND URETERS:Unremarkable. No hydronephrosis. No solid mass. VASCULATURE:Unremarkable. No aortic aneurysm. BOWEL:Pancolonic diverticulosis. Circumferential mural thickening of sigmoid colon likely due to chronic muscular hypertrophy. This could not be appreciated on prior examination due to lack of any distension of the sigmoid lumen on that examination. . APPENDIX:Normal appendix. PERITONEUM:Unremarkable. No free fluid. No free air. LYMPH NODES:Unremarkable. No enlarged lymph nodes. BLADDER:Unremarkable. REPRODUCTIVE:Normal prostate BONES:Grade 1 retrolisthesis at L5-S1 without spondylolysis. OTHER FINDINGS:None. IMPRESSION: Findings consistent with acute pancreatitis. No evidence of cholelithiasis or choledocholithiasis. Fatty infiltration of the liver with mild hepatomegaly. 05/14/2017 CT and labs came back. On re-evaluation. Patient feels better. Discussed results and plan with patient who expresses understanding. All questions answered and there is agreement with the plan to discharge home with instructions for pain medication. Patient stable for discharge. Patient will follow up with PMD and return if symptoms persist or worsen. - Lab Interpretations Lab Results: 05/14/17 05:52 05/14/17 05:52 Lab Results 05/14/17 05:52: WBC 7.1 D, RBC 6.71 H, Hgb 16.3, Hct 46.9, MCV 69.9 L, MCH 24.3 L, MCHC 34.8, RDW 14.6 H, Plt Count 196, MPV 10.4 05/14/17 05:52: Sodium 135, Potassium 3.4 L, Chloride 99, Carbon Dioxide 24, Anion Gap 15, BUN 8, Creatinine 0.7, Est GFR ( Amer) > 60, Est GFR (Non- Af Amer) > 60, Random Glucose 96, Calcium 9.5, Total Bilirubin 1.4 H, AST 45, ALT 59 H, Alkaline Phosphatase 77, Total Protein 7.8, Albumin 4.4, Globulin 3.4 , Albumin/Globulin Ratio 1.3, Lipase 571 H I have reviewed the lab results: Yes - RAD Interpretation Radiology Orders: 05/14/17 05:39 CHEST PORTABLE [RAD] Stat 05/14/17 06:36 ABD & PELVIS IV CONTRAST ONLY [CT] Stat Court Clerk: Radiologist - Medication Orders Current Medication Orders: Discontinued Medications Famotidine (Pepcid) 20 mg IVP STAT STA Stop: 05/14/17 05:43 Last Admin: 05/14/17 06:07 Dose: 20 mg Sodium Chloride (Sodium Chloride 0.9%) 1,000 mls @ 999 mls/hr IV .Q1H1M STA Stop: 05/14/17 06:42 Last Admin: 05/14/17 06:07 Dose: 999 mls/hr Iohexol (Omnipaque 350 100 Ml) Confirm Administered Dose 350 mg .ROUTE .STK-MED ONE Stop: 05/14/17 07:28 Ketorolac Tromethamine (Toradol) 30 mg IVP ONCE ONE Stop: 05/14/17 05:43 Last Admin: 05/14/17 06:07 Dose: 30 mg - Scribe Statement The provider has reviewed the documentation as recorded by the Scribe 05/14/2017 Scribe Attestation: Kezia Howellibvi Attestation: All medical record entries made by the Scribe were at my direction and personally dictated by me. I have reviewed the chart and agree that the record accurately reflects my personal performance of the history, physical exam, medical decision making, and the department course for this patient. I have also personally directed, reviewed, and agree with the discharge instructions and disposition. Disposition/Present on Arrival - Present on Arrival Any Indicators Present on Arrival: No History of DVT/PE: No History of Uncontrolled Diabetes: No Urinary Catheter: No History of Decub. Ulcer: No History Surgical Site Infection Following: None - Disposition Have Diagnosis and Disposition been Completed?: Yes Diagnosis: Abdominal pain, Pancreatitis Disposition: HOME/ ROUTINE Disposition Time: 08:00 Patient Problems: Current Active Problems Problem Status Onset Pancreatitis Acute Condition: IMPROVED Discharge Instructions (ExitCare): Pancreatitis (ED) Additional Instructions: Thank you for letting us take care of you today. You were treated for abdominal pain. The emergency medical care you received today was directed at your acute symptoms. If you were prescribed any medication, please fill it and take as directed. It may take several days for your symptoms to resolve. Return to the Emergency Department if your symptoms worsen, do not improve, or if you have any other problems. Please contact your doctor or call one of the physicians/clinics you have been referred to that are listed on the Patient Visit Information form that is included in your discharge packet. Bring any paperwork you were given at discharge with you along with any medications you are taking to your follow up visit. Our treatment cannot replace ongoing medical care by a primary care provider (PCP) outside of the emergency department. Thank you for allowing the [email or web address] team to be part of your care today. Follow up with your doctor in 2-3 days for re-evaluation and further management. Prescriptions: Acetaminophen/Hydrocodone Bi [Vicodin 300 mg-5 mg] 1 tab PO Q6 PRN #15 tab PRN Reason: Pain, Severe (8-10) Ondansetron ODT [Zofran ODT] 8 mg PO Q8 PRN #20 odt PRN Reason: Nausea/Vomiting Referrals: Jacklyn Ortega MD [Primary Care Provider] - Follow up with primary Forms: [employer] (Spanish)
[2017-05-14 07:49] VITALS: BP 150/99; PULSE 78; RESP 16; TEMP 98; O2SAT 97
--- NOTE | 2017-05-14 08:16 | CT ---
PROCEDURE: CT Abdomen and Pelvis with contrast HISTORY: abdominal pain COMPARISON: 01/16/2017 TECHNIQUE: Contrast dose: 100 mL Omnipaque 350 Radiation dose: Total exam DLP = 696.91 mGy-cm. This CT exam was performed using one or more of the following dose reduction techniques: Automated exposure control, adjustment of the mA and/or kV according to patient size, and/or use of iterative reconstruction technique. FINDINGS: LOWER THORAX: Unremarkable. LIVER: Mild hepatomegaly. Diffusely diminished attenuation consistent with fatty infiltration. No focal mass. No biliary ductal dilatation. GALLBLADDER AND BILE DUCTS: Unremarkable. PANCREAS: Mildly enlarged pancreas, diffusely with peripancreatic fluid/ edema consistent with acute pancreatitis. No pancreatic ductal dilatation. No focal mass. SPLEEN: Unremarkable. ADRENALS: Unremarkable. No mass. KIDNEYS AND URETERS: Unremarkable. No hydronephrosis. No solid mass. VASCULATURE: Unremarkable. No aortic aneurysm. BOWEL: Pancolonic diverticulosis. Circumferential mural thickening of sigmoid colon likely due to chronic muscular hypertrophy. This could not be appreciated on prior examination due to lack of any distension of the sigmoid lumen on that examination. . APPENDIX: Normal appendix. PERITONEUM: Unremarkable. No free fluid. No free air. LYMPH NODES: Unremarkable. No enlarged lymph nodes. BLADDER: Unremarkable. REPRODUCTIVE: Normal prostate BONES: Grade 1 retrolisthesis at L5-S1 without spondylolysis. OTHER FINDINGS: None. IMPRESSION: Findings consistent with acute pancreatitis. No evidence of cholelithiasis or choledocholithiasis. Fatty infiltration of the liver with mild hepatomegaly.
--- NOTE | 2017-05-14 08:17 | RAD ---
HISTORY: abdominal pain COMPARISON: 01/16/2017 FINDINGS: LUNGS: No active pulmonary disease. PLEURA: No significant pleural effusion identified, no pneumothorax apparent. CARDIOVASCULAR: Normal. OSSEOUS STRUCTURES: No significant abnormalities. VISUALIZED UPPER ABDOMEN: Normal. OTHER FINDINGS: None. IMPRESSION: No active disease.
--- NOTE | 2017-05-14 11:22 | CARD ---
APPROVED REPORT EKG Measurement Heart [id number] <Conclusion> Normal sinus rhythm Normal ECG
== END 2017-05-14 08:58 | disposition home or self-care (01) ==
LOC: ED 04:50
DX: R10.9 Unspecified abdominal pain (principal); I10 Essential (primary) hypertension; K85.90 Acute pancreatitis without necrosis or infection, unspecified; F17.210 Nicotine dependence, cigarettes, uncomplicated
CPT/HCPCS: 71010; 74177; 80053; 83690; 85027; 93005; 96361; 96374; 96375; 99284; J1885; J7040; Q9967

== ENCOUNTER 2017-05-14 14:37 | Inpatient (IN) | payer OTHER ==
[2017-05-14 14:42] VITALS: BMI 26.2
--- NOTE | 2017-05-14 15:11 | ED PDOC ---
Arrival/HPI - General Chief Complaint: Abdominal Pain Time Seen by Provider: 05/14/17 15:08 Historian: Patient - History of Present Illness Narrative History of Present Illness (Text): 05/14/17 15:11 A 36 year old male, whose past medical history includes social drinking, presents to the emergency department complaining of abdominal pain for the past few days. Patient reports he was seen earlier today in the emergency room for same complaints. He states his pain has not resolved and returned for further evaluation. Patient denies any fever, chills, nausea, vomiting, diarrhea or any other complaints. Time/Duration: Other (few days) Symptom Course: Unchanged Quality: Other Context: Home Past Medical History - Provider Review Nursing Documentation Reviewed: Yes - Infectious Disease Hx of Infectious Diseases: None - Tetanus Immunization Tetanus Immunization: Unknown - Past Medical History Past Medical History: No Previous - Cardiac Hx Hypertension: Yes Other/Comment: stopped taking htn meds did not like the way they made him feel - Pulmonary Hx Asthma: Yes - HEENT Hx HEENT Disorder: Yes (eyeglasses) - Integumentary Other/Comment: lle skin discolorations - Musculoskeletal/Rheumatological Hx Falls: No - Gastrointestinal Hx Pancreatitis: Yes - Psychiatric Hx Depression: No Hx Emotional Abuse: No Hx Physical Abuse: No Hx Substance Use: No - Past Surgical History Past Surgical History: No Previous - Anesthesia Hx Anesthesia: No - Suicidal Assessment Feels Threatened In Home Enviroment: No Family/Social History - Physician Review Nursing Documentation Reviewed: Yes Family/Social History: No Known Family HX Smoking Status: Light Smoker < 10 Cigarettes Daily Hx Alcohol Use: Yes (occasional) Hx Substance Use: No Allergies/Home Meds Allergies/Adverse Reactions: Allergies No Known Allergies Allergy (Verified 01/16/17 10:01) Home Medications: Home Meds Medication Instructions Recorded Confirmed Hydrochlorothiazide [Microzide] 1 tab PO DAILY 05/14/17 05/14/17 amLODIPine [Norvasc] 1 tab PO DAILY 05/14/17 05/14/17 Physical Exam - Physical Exam Narrative Physical Exam (Text): - Review of Systems Constitutional: Normal. absent: Fatigue, Weight Change, Fevers Eyes: Normal ENT: denies sore throat, denies tristhmus Respiratory: Normal. absent: SOB, Cough, Sputum Cardiovascular: absent: Chest Pain, Palpitations, Syncope Gastrointestinal: (+) Abdominal pain absent: Diarrhea, Nausea, Vomiting Genitourinary: Normal. absent: Dysuria, Frequency, Hematuria, vaginal bleeding Musculoskeletal: Normal. absent: Arthralgias, Back Pain, Neck Pain Skin: no rashes, no erythema Neurological: absent: Focal Weakness Endocrine: Normal Hemo/Lymphatic: Normal Psychiatric: No suicidal or homicidal ideations Physical exam Patient appears age appropriate in no distress, speaking full sentences without difficulty - Systems Exam Head: Present: Atraumatic, Normocephalic Pupils: Present: PERRL Extroacular Muscles: Present: EOMI Conjunctiva: Present: Normal Mouth: Present: Moist Mucous Membranes Neck: Present: Normal Range of Motion. No: MIDLINE TENDERNESS, Paraspinal Tenderness Respiratory/Chest: Present: Clear to Auscultation, Good Air Exchange. No: Respiratory Distress, Accessory Muscle Use, Tachypneic Cardiovascular: Present: Regular Rate and Rhythm, Normal S1, S2, Peripheal Pulses Present. No: Murmurs Abdomen: Present: Normal Bowel Sounds, Diffuse abdominal tenderness No: Distention, Peritoneal Signs, Rebound, Guarding Back: Present: Normal Inspection. No: Midline Tenderness, Paraspinal Tenderness Upper Extremity: Present: Normal Inspection. No: Cyanosis, Edema Lower Extremity: Present: Normal Inspection. No: Edema Neurological: Present: GCS=15, Speech Normal, cranial nerves II through XII fully intact with no cerebellar abnormality, neurosensory fully intact. No focal neurological deficits. Skin: Present: Warm, Dry, Normal Color. No: Rashes Lymphatic: Present: OX3, NI, NC Psychiatric: Present: Alert, Oriented x 3, Normal Insight, Normal Concentration Vital Signs Reviewed: Yes Vital Signs Temp Pulse Resp BP Pulse Ox 05/14/17 16:20 85 18 153/93 H 97 05/14/17 14:45 173/102 H 05/14/17 14:41 97.7 F 80 18 191/120 H 98 Temperature: Afebrile Blood Pressure: Hypertensive Pulse: Regular Respiratory Rate: Normal Appearance: Positive for: Well-Appearing, Non-Toxic, Comfortable Pain Distress: None Mental Status: Positive for: Alert and Oriented X 3 Medical Decision Making ED Course and Treatment: 05/14/17 15:11 Impression: A 36 year old male with abdominal pain. On exam, diffuse tenderness. Plan: -- Toradol and IV fluids -- Reassess and disposition Prior Visits: Previous records reviewed. Patient was seen early this morning for abdominal pain. Patient's CAT scan showed acute pancreatitis. Patient's lipase was 571. As per documentation, patient felt better and was discharged home. Progress Notes: Pain medication ordered. Patients PMD is not associated with [facility]. Plan is to admit to internal medicine electronics scale tester for intractable abdominal pain. 05/14/17 15:31 Case discussed in detail with Dr. Martell, who accepts patient to her service with Dr. Peterson on consult. Patient aware of and in agreement with plan. - Medication Orders Current Medication Orders: Sodium Chloride (Sodium Chloride 0.9%) 1,000 mls @ 75 mls/hr IV .[id number] STA Stop: 05/15/17 04:50 Ondansetron HCl (Zofran Inj) 4 mg IVP Q6H PRN PRN Reason: Nausea/Vomiting Last Admin: 05/14/17 15:40 Dose: 4 mg Discontinued Medications Sodium Chloride (Sodium Chloride 0.9%) 1,000 mls @ 1,000 mls/hr IV .Q1H STA Stop: 05/14/17 16:22 Last Admin: 05/14/17 15:58 Dose: 1,000 mls/hr Ketorolac Tromethamine (Toradol) 15 mg IVP STAT STA Stop: 05/14/17 15:24 Last Admin: 05/14/17 15:59 Dose: 15 mg - Scribe Statement The provider has reviewed the documentation as recorded by the Luke Edge Provider Scribe Attestation: All medical record entries made by the Danteibvi were at my direction and personally dictated by me. I have reviewed the chart and agree that the record accurately reflects my personal performance of the history, physical exam, medical decision making, and the department course for this patient. I have also personally directed, reviewed, and agree with the discharge instructions and disposition. Disposition/Present on Arrival - Present on Arrival Any Indicators Present on Arrival: No History of DVT/PE: No History of Uncontrolled Diabetes: No Urinary Catheter: No History of Decub. Ulcer: No History Surgical Site Infection Following: None - Disposition Have Diagnosis and Disposition been Completed?: Yes Diagnosis: Pancreatitis Disposition: HOSPITALIZED Disposition Time: 15:31 Patient Plan: Admission Condition: FAIR
[2017-05-14] MEDS ORDERED: Sodium Chloride 0.9% 1,000 ML IV STA ×2 (15:23→15:31)
[2017-05-14 17:10] VITALS: RESP 20
[2017-05-14] MEDS: HYDROmorphone 0.5 mg/0.5 ml ISec IVP PRN ×2 (17:54→22:09)
[2017-05-14] MEDS ORDERED: Pneumococcal 23-Valent Vaccine IM ONE (23:15)
--- NOTE | 2017-05-14 23:34 | CP.PCM.CON ---
History of Present Illness - History of Present Illness History of Present Illness: This study. The patient noticed the acute onset of abdominal pain on Sunday morning. He said he had a heavy dinner with a steak large amount. The next day morning he woke up with the discomfort. History of EtOH in the past but he said he did not drink all call for the last 2 weeks. Complains of discomfort in the left upper quadrant area dull ache. He did have these symptoms for pancreatitis in the past. Her past medical history i ncludes history of pancreatitis,Hypertension Social history positive for smoking and alcohol Family history noncontributory Review of the system Positive as of both other systems reviewed negative Past Patient History - Infectious Disease Hx of Infectious Diseases: None - Tetanus Immunizations Tetanus Immunization: Unknown - Past Social History Smoking Status: Light Smoker < 10 Cigarettes Daily - CARDIAC Hx Hypertension: Yes Other/Comment: stopped taking htn meds did not like the way they made him feel - PULMONARY Hx Asthma: Yes - HEENT Hx HEENT Problems: Yes (eyeglasses) - INTEGUMENTARY Other/Comment: lle skin discolorations - MUSCULOSKELETAL/RHEUMATOLOGICAL Hx Falls: No - GASTROINTESTINAL Hx Pancreatitis: Yes - PSYCHIATRIC Hx Depression: No Hx Emotional Abuse: No Hx Physical Abuse: No Hx Substance Use: No - SURGICAL HISTORY Hx Surgeries: No - ANESTHESIA Hx Anesthesia: No Meds Allergies/Adverse Reactions: Allergies Allergy/AdvReac Type Severity Reaction Status Date / Time No Known Allergies Allergy Verified 01/16/17 10:01 - Medications Medications: Current Medications Amlodipine Besylate (Norvasc) 10 mg PO DAILY REAL Last Admin: 05/14/17 19:30 Dose: 10 mg Hydrochlorothiazide (Microzide) 12.5 mg PO DAILY REAL Hydromorphone HCl (Dilaudid) 0.5 mg IVP Q4H PRN PRN Reason: Pain, Mild (1-3) Last Admin: 05/14/17 22:09 Dose: 0.5 mg Sodium Chloride (Sodium Chloride 0.9%) 1,000 mls @ 75 mls/hr IV .[id number] STA Stop: 05/15/17 04:50 Last Admin: 05/14/17 17:30 Dose: 75 mls/hr Losartan Potassium (Cozaar) 50 mg PO DAILY [facility] Ondansetron HCl (Zofran Inj) 4 mg IVP Q6H PRN PRN Reason: Nausea/Vomiting Last Admin: 05/14/17 15:40 Dose: 4 mg Ondansetron HCl (Zofran Inj) 4 mg IVP Q6 PRN PRN Reason: Nausea/Vomiting Pantoprazole Sodium (Protonix Inj) 40 mg IVP DAILY REAL Physical Exam - Head Exam Head Exam: ATRAUMATIC, NORMOCEPHALIC - Eye Exam Eye Exam: EOMI, PERRL - ENT Exam ENT Exam: Mucous Membranes Moist, Normal Oropharynx - Neck Exam Neck exam: Positive for: Normal Inspection - Respiratory Exam Respiratory Exam: NORMAL BREATHING PATTERN. absent: Rales, Rhonchi - Cardiovascular Exam Cardiovascular Exam: +S1, +S2. absent: JVD - GI/Abdominal Exam GI & Abdominal Exam: Soft, Tenderness. absent: Mass Additional comments: Mild tenderness present in the epigastric and left upper quadrant area - Rectal Exam Rectal Exam: Deferred - Extremities Exam Extremities exam: Positive for: normal inspection. Negative for: calf tenderness, pedal edema - Back Exam Back exam: FULL ROM. absent: CVA tenderness (L) - Neurological Exam Neurological exam: Alert, Oriented x3 - Psychiatric Exam Psychiatric exam: Normal Affect, Normal Mood - Skin Skin Exam: Intact, Warm Results - Vital Signs Recent Vital Signs: Last Vital Signs Temp 98.3 F 05/14/17 17:09 Pulse 71 05/14/17 17:09 Resp 20 05/14/17 17:09 BP 155/102 H 05/14/17 19:30 Pulse Ox 98 05/14/17 17:09 Assessment & Plan - Assessment and Plan (Free Text) Assessment: This 34-year-old patient with a history of EtOH use last drink he mentioned about 2 weeks ago admitted with the abdominal pain mainly in the epigastric and left upper quadrant area CAT scan shows some peripancreatic areas streaking suggestive pancreatitis with mildly elevated pancreatic enzymes. Patient did have an ultrasound scan done in the previous admission it was negative for any gallstones. Would recommend the patient 1. Clear liquid diet 2. Would get MRI of the pancreas with MRCP to further evaluate in view of this pancreatitis Thank you much for allowing us to put splenic care of the patient.
[2017-05-15] MEDS: HYDROmorphone 0.5 mg/0.5 ml ISec IVP PRN (05:41)
[2017-05-15 06:35] LABS: HEMATOCRIT 44.5 % (42.0-52.0); MEAN CELL VOLUME 69.9 fl (80.0-105.0); MEAN CORPUSCULAR HEMOGLOBIN 23.9 pg (25.0-35.0); MEAN CORPUSCULAR HGB CONC 34.2 g/dl (31.0-37.0); MEAN PLATELET VOLUME 11.1 fl (7.0-11.0); RED CELL DISTRIBUTION WIDTH 14.6 % (11.5-14.5); WHITE BLOOD COUNT 6.2 10^3/ul (4.5-11.0)
[2017-05-15 06:41] LABS: ALB/GLOB RATIO 1.2 (1.1-1.8); ALKALINE PHOSPHATASE 64 U/L (38-126); ALT/SGPT 50 U/L (7-56); AMYLASE 205 U/L (35-125); AST/SGOT 33 U/L (17-59); BILIRUBIN,DIRECT 0.3 mg/dL (0.0-0.4); BILIRUBIN,TOTAL 0.8 mg/dL (0.2-1.3); BLOOD UREA NITROGEN 3 mg/dL (7-21); CALCIUM 8.8 mg/dL (8.4-10.5); CARBON DIOXIDE 26 mmol/L (21-33); CHLORIDE 105 mmol/L (98-107); CHOLESTEROL 168 mg/dL (130-200); GFR AFRICAN-AMERICAN > 60; GLUCOSE,RANDOM 95 mg/dL (70-110); LIPASE 801 U/L (23-300); POTASSIUM 3.4 mmol/L (3.6-5.0); SODIUM 139 mmol/L (132-148); TOTAL PROTEIN 6.6 g/dL (5.8-8.3)
[2017-05-15] MEDS: Sodium Chloride 0.9% 1,000 ML IV SCH (11:15)
--- NOTE | 2017-05-15 11:18 | CP.PCM.PN ---
<Na Santoro - Last Filed: 05/15/17 11:18> Subjective - Date & Time of Evaluation Date of Evaluation: 05/15/17 Time of Evaluation: :10 - Subjective Subjective: Seen and examined at the bedside earlier today, chart was reviewed. Denies nausea, vomiting, fever or chills. Abdominal pain has improved, 09/12, last pain medication was 4 AM. No acute overnight event reported. Objective - Vital Signs/Intake and Output Vital Signs (last 24 hours): Temp Pulse Resp BP Pulse Ox 98.3 F 68 20 135/95 H 98 05/15/17 07:55 05/15/17 09:55 05/15/17 07:55 05/15/17 09:55 05/15/17 07:55 Intake and Output: 05/15/17 05/15/17 06:59 18:59 Intake Total 0 Balance 0 - Medications Medications: Current Medications Amlodipine Besylate (Norvasc) 10 mg PO DAILY [facility] Last Admin: 05/15/17 09:55 Dose: 10 mg Hydrochlorothiazide (Microzide) 12.5 mg PO DAILY [facility] Last Admin: 05/15/17 09:54 Dose: 12.5 mg Hydromorphone HCl (Dilaudid) 0.5 mg IVP Q4H PRN PRN Reason: Pain, Mild (1-3) Last Admin: 05/15/17 05:41 Dose: 0.5 mg Sodium Chloride (Sodium Chloride 0.9%) 1,000 mls @ 100 mls/hr IV .Q10H [facility] Losartan Potassium (Cozaar) 50 mg PO DAILY [facility] Last Admin: 05/15/17 09:55 Dose: 50 mg Ondansetron HCl (Zofran Inj) 4 mg IVP Q6H PRN PRN Reason: Nausea/Vomiting Last Admin: 05/14/17 15:40 Dose: 4 mg Ondansetron HCl (Zofran Inj) 4 mg IVP Q6 PRN PRN Reason: Nausea/Vomiting Pantoprazole Sodium (Protonix Inj) 40 mg IVP DAILY [facility] Last Admin: 05/15/17 09:54 Dose: 40 mg - Labs Labs: 05/15/17 06:13 05/15/17 06:13 - Constitutional Appears: No Acute Distress - Head Exam Head Exam: NORMOCEPHALIC - Eye Exam Eye Exam: Normal appearance. absent: Scleral icterus - ENT Exam ENT Exam: Mucous Membranes Moist - Neck Exam Neck Exam: Normal Inspection - Respiratory Exam Respiratory Exam: Clear to Ausculation Bilateral, NORMAL BREATHING PATTERN. absent: Respiratory Distress - Cardiovascular Exam Cardiovascular Exam: +S1, +S2 - GI/Abdominal Exam GI & Abdominal Exam: Soft, Tenderness, Normal Bowel Sounds. absent: Guarding, Organomegaly, Rebound Additional comments: Right upper quadrant tenderness on deep palpation, no rebound or guarding. - Extremities Exam Extremities Exam: Calf Tenderness, Normal Capillary Refill. absent: Pedal Edema - Neurological Exam Neurological Exam: Alert, Awake, Oriented x3 - Skin Skin Exam: Dry, Warm Assessment and Plan - Assessment and Plan (Free Text) Assessment: Assessment: Upper abdominal pain Acute pancreatitis, evident on CT scan showing peripancreatic areas of streaking and mildly elevated pancreatic enzymes. Abdominal ultrasound negative for gallstones. Plan: Continue clear liquid diet Continue IV fluids, normal saline at 100 cc an hour Trend lipase Continue PPI Discussed with patient regarding MRCP/MRI further evaluation for pancreatitis Seen and discussed with Dr. Peterson. <Feliberto Peterson V - Last Filed: 05/15/17 23:41> Objective - Vital Signs/Intake and Output Vital Signs (last 24 hours): Temp Pulse Resp BP Pulse Ox 98.3 F 68 20 135/95 H 98 05/15/17 07:55 05/15/17 09:55 05/15/17 07:55 05/15/17 09:55 05/15/17 07:55 Intake and Output: 05/15/17 05/16/17 18:59 06:59 Intake Total 950 540 Output Total 5 Balance 945 540 - Medications Medications: Current Medications Amlodipine Besylate (Norvasc) 10 mg PO DAILY [facility] Last Admin: 05/15/17 09:55 Dose: 10 mg Hydrochlorothiazide (Microzide) 12.5 mg PO DAILY [facility] Last Admin: 05/15/17 09:54 Dose: 12.5 mg Hydromorphone HCl (Dilaudid) 0.5 mg IVP Q4H PRN PRN Reason: Pain, Mild (1-3) Last Admin: 05/15/17 05:41 Dose: 0.5 mg Sodium Chloride (Sodium Chloride 0.9%) 1,000 mls @ 100 mls/hr IV .Q10H [facility] Last Admin: 05/15/17 11:15 Dose: 100 mls/hr Losartan Potassium (Cozaar) 50 mg PO DAILY [facility] Last Admin: 05/15/17 09:55 Dose: 50 mg Ondansetron HCl (Zofran Inj) 4 mg IVP Q6H PRN PRN Reason: Nausea/Vomiting Last Admin: 05/14/17 15:40 Dose: 4 mg Ondansetron HCl (Zofran Inj) 4 mg IVP Q6 PRN PRN Reason: Nausea/Vomiting Pantoprazole Sodium (Protonix Inj) 40 mg IVP DAILY [facility] Last Admin: 05/15/17 09:54 Dose: 40 mg - Labs Labs: 05/15/17 06:13 05/15/17 06:13 Attending/Attestation - Attestation I have personally seen and examined this patient.: Yes I have fully participated in the care of the patient.: Yes I have reviewed all pertinent clinical information, including history, physical exam and plan: Yes Notes (Text): this patient was seen and evaluated the earlier. This is an addendum to the GE progress report dictated by Na Santoro APN patient feels better on examination abdomen soft only minimal tenderness on deep palpation of the left upper quadrant area. Awaiting for MRI of the pancreas with MRCP History of EtOH use. Patient was again advised to avoid alcohol
--- NOTE | 2017-05-15 20:51 | HP ---
CHIEF COMPLAINT: Abdominal pain. HISTORY OF PRESENT ILLNESS: The patient is a 36-year-old male with past medical history of social drinking, came to the emergency department complaining of abdominal pain for the past few days. The patient reports that he was seen earlier today in the emergency room for same complaints. He states that his pain has not resolved and returned for further evaluation. The patient denies any fever or chills, nausea, vomiting, diarrhea, headache, hematuria, hematochezia. PAST MEDICAL HISTORY: Hypertension, noncompliant, was not taking his blood pressure medications. History of pancreatitis. FAMILY HISTORY: Father and mother noncontributory. HABITS: Ethanol, occasionally. Smoking, light smoker, less than 10 cigarettes a day. ALLERGIES: THE PATIENT IS NOT ALLERGIC WITH ANY MEDICATION. HOME MEDICATIONS: Hydrochlorothiazide and Norvasc. REVIEW OF SYSTEMS: The patient was seen and examined at the bedside, still complaining about abdominal pain. No nausea, vomiting, or diarrhea. No hematuria, no hematochezia. No headache, no dizziness, but complaining about abdominal pain. PHYSICAL EXAMINATION VITAL SIGNS: Temperature is 97.7, pulse 80, respiratory rate 18, blood pressure 190/120. Repeat blood pressure is 155/102. HEENT: Head is normocephalic and atraumatic. Eyes, PERRLA. Extraocular muscles are intact. Conjunctivae clear. Nose patent. Mucous membrane moist. NECK: Supple. No carotid bruits, JVD, or thyromegaly. CHEST: Bilaterally symmetrical. HEART: S1, S2 positive. LUNGS: Clear to auscultation. ABDOMEN: Soft. Bowel sounds positive. No organomegaly. EXTREMITIES: No edema, no cyanosis. NEUROLOGIC: The patient is awake and alert. Moving all 4 extremities. No focal deficits. LABORATORY DATA: White blood cells 7.1, hemoglobin 15.3, hematocrit 46.9, platelets 196. Sodium 135, potassium 3.4, BUN 8, creatinine 0.7, glucose 96. ALT 59. Triglycerides 194. ASSESSMENT AND PLAN: The patient is a 36-year-old male with acute pancreatitis, acute on chronic; hypertriglyceridemia; abnormal liver function test; history of hypokalemia, replaced, came with abdominal pain. CAT scan of abdomen and pelvis done, showed acute pancreatitis and no evidence of cholelithiasis or choledocholithiasis, fatty infiltration of the liver with mild hepatomegaly; periods of hypertension , noncompliant with medications; dyslipidemia; fatty liver; hepatomegaly. We admitted the patient and GI consult called. Last time, the patient was admitted with Dr. Baxter and Dr. Tobin Suggs. We will continue present treatment, repeat labs and follow up. Fouzia Castle MD MTDD
--- NOTE | 2017-05-16 00:57 | PN ---
DATE: SUBJECTIVE: The patient is seen and examined on the bedside, looking comfortable. No more nausea or vomiting. No fever or chills. Abdominal pain is getting better. Getting liquid food. No acute overnight event reported. No headache. No dizziness. No chest pain. No palpitations. PHYSICAL EXAMINATION: VITAL SIGNS: Temperature 98.3, pulse 68, respiratory rate 20, blood pressure 135/95, and pulse oximetry 98%. HEENT: Head is normocephalic and atraumatic. Eyes, PERRLA. Extraocular muscle intact. Conjunctivae clear. Nose is patent. Mucous membrane moist. NECK: Supple. No carotid bruits. No JVD or thyromegaly. CHEST: Bilaterally symmetrical. HEART: S1 and S2 positive. LUNGS: Clear to auscultation. ABDOMEN: Soft. Bowel sounds positive. No organomegaly. EXTREMITIES: No edema. No cyanosis. NEUROLOGICAL: The patient is awake and alert. Moving all 4 extremities. No focal deficits. LABORATORY DATA: White blood cell 6.2, hemoglobin 15.2, hematocrit 44.5, and platelets 188. Sodium 139, potassium 3.4, BUN 3, creatinine 0.7, and glucose 95. ASSESSMENT AND PLAN: Mr. Alton Hannon is a 36-year-old male came with upper abdominal pain, acute pancreatitis. CAT scan of the abdomen done showing peripancreatic areas of streaking and mildly elevated pancreatic enzymes. Abdominal ultrasound is negative for gallstones with a history of pancreatitis, history of ethanol abuse. As per gastroenterology, continue clear liquid diet. Continue intravenous normal saline. Lipase trending down. Continue proton-pump inhibitor. According to gastroenterology, the patient needs MRCP/MRI for further evaluation of pancreatitis. Gastrointestinal and deep venous thrombosis prophylaxis. Gastroesophageal reflux disease and dyspepsia. We will follow up. Fouzia Castle MD
[2017-05-16] MEDS: Sodium Chloride 0.9% 1,000 ML IV SCH (04:33)
[2017-05-16 07:25] LABS: ALB/GLOB RATIO 1.3 (1.1-1.8); ALKALINE PHOSPHATASE 63 U/L (38-126); ALT/SGPT 67 U/L (7-56); AST/SGOT 53 U/L (17-59); BILIRUBIN,TOTAL 0.7 mg/dL (0.2-1.3); BLOOD UREA NITROGEN 4 mg/dL (7-21); CALCIUM 8.9 mg/dL (8.4-10.5); CARBON DIOXIDE 27 mmol/L (21-33); CHLORIDE 105 mmol/L (98-107); GFR AFRICAN-AMERICAN > 60; GLUCOSE,RANDOM 95 mg/dL (70-110); LIPASE 572 U/L (23-300); POTASSIUM 3.7 mmol/L (3.6-5.0); SODIUM 142 mmol/L (132-148); TOTAL PROTEIN 6.6 g/dL (5.8-8.3)
[2017-05-16] MEDS ORDERED: Gadodiamide 287 MG/ML VIAL (15ML) IV ONE (13:17)
--- NOTE | 2017-05-16 13:43 | CP.PCM.PN ---
<Na Santoro - Last Filed: 05/16/17 13:42> Subjective - Date & Time of Evaluation Date of Evaluation: 05/16/17 Time of Evaluation: 10:10 - Subjective Subjective: S&E, chart reviewed . NPO for MRCP/MRI today, no N/V abdominal pain improved, no acute overnight events. Objective - Vital Signs/Intake and Output Vital Signs (last 24 hours): Temp Pulse Resp BP Pulse Ox 98.4 F 67 20 133/91 H 96 05/16/17 06:23 05/16/17 11:03 05/16/17 06:23 05/16/17 11:03 05/16/17 06:23 Intake and Output: 05/16/17 05/16/17 06:59 18:59 Intake Total 1740 Balance 1740 - Medications Medications: Current Medications Amlodipine Besylate (Norvasc) 10 mg PO DAILY [facility] Last Admin: 05/16/17 11:02 Dose: 10 mg Hydrochlorothiazide (Microzide) 12.5 mg PO DAILY [facility] Last Admin: 05/16/17 11:03 Dose: 12.5 mg Hydromorphone HCl (Dilaudid) 0.5 mg IVP Q4H PRN PRN Reason: Pain, Mild (1-3) Last Admin: 05/15/17 05:41 Dose: 0.5 mg Sodium Chloride (Sodium Chloride 0.9%) 1,000 mls @ 100 mls/hr IV .Q10H [facility] Last Admin: 05/16/17 04:33 Dose: 100 mls/hr Losartan Potassium (Cozaar) 50 mg PO DAILY [facility] Last Admin: 05/16/17 11:03 Dose: 50 mg Ondansetron HCl (Zofran Inj) 4 mg IVP Q6H PRN PRN Reason: Nausea/Vomiting Last Admin: 05/14/17 15:40 Dose: 4 mg Ondansetron HCl (Zofran Inj) 4 mg IVP Q6 PRN PRN Reason: Nausea/Vomiting Pantoprazole Sodium (Protonix Inj) 40 mg IVP DAILY [facility] Last Admin: 05/16/17 11:03 Dose: 40 mg - Labs Labs: 05/15/17 06:13 05/16/17 06:10 - Constitutional Appears: No Acute Distress - Head Exam Head Exam: NORMOCEPHALIC - Eye Exam Eye Exam: Normal appearance. absent: Scleral icterus - ENT Exam ENT Exam: Mucous Membranes Moist - Neck Exam Neck Exam: Normal Inspection - Respiratory Exam Respiratory Exam: Clear to Ausculation Bilateral, NORMAL BREATHING PATTERN. absent: Respiratory Distress - Cardiovascular Exam Cardiovascular Exam: +S1, +S2 - GI/Abdominal Exam GI & Abdominal Exam: Soft, Normal Bowel Sounds. absent: Guarding, Tenderness, Organomegaly, Rebound - Extremities Exam Extremities Exam: Normal Capillary Refill. absent: Calf Tenderness, Pedal Edema - Neurological Exam Neurological Exam: Alert, Awake, Oriented x3 - Skin Skin Exam: Dry, Warm Assessment and Plan - Assessment and Plan (Free Text) Assessment: Assessment: Resolving abdominal pain Acute pancreatitis, evident on CT scan showing peripancreatic areas of streaking and mildly elevated pancreatic enzymes. Abdominal ultrasound negative for gallstones. Plan: Continue clear liquid diet Continue IV fluids, normal saline at 100 cc an hour Trend lipase Continue PPI Pending MRCP today, FU report Seen and discussed with Dr. Peterson. <Feliberto Peterson V - Last Filed: 05/16/17 23:50> Objective - Vital Signs/Intake and Output Vital Signs (last 24 hours): Temp Pulse Resp BP Pulse Ox 98.7 F 62 20 133/86 99 05/16/17 16:36 05/16/17 16:36 05/16/17 16:36 05/16/17 16:36 05/16/17 16:36 Intake and Output: 05/16/17 05/17/17 18:59 06:59 Intake Total 0 120 Balance 0 120 - Medications Medications: Current Medications Amlodipine Besylate (Norvasc) 10 mg PO DAILY [facility] Last Admin: 05/16/17 11:02 Dose: 10 mg Hydrochlorothiazide (Microzide) 12.5 mg PO DAILY [facility] Last Admin: 05/16/17 11:03 Dose: 12.5 mg Hydromorphone HCl (Dilaudid) 0.5 mg IVP Q4H PRN PRN Reason: Pain, Mild (1-3) Last Admin: 05/15/17 05:41 Dose: 0.5 mg Losartan Potassium (Cozaar) 50 mg PO DAILY [facility] Last Admin: 05/16/17 11:03 Dose: 50 mg Ondansetron HCl (Zofran Inj) 4 mg IVP Q6H PRN PRN Reason: Nausea/Vomiting Last Admin: 05/14/17 15:40 Dose: 4 mg Ondansetron HCl (Zofran Inj) 4 mg IVP Q6 PRN PRN Reason: Nausea/Vomiting Pantoprazole Sodium (Protonix Inj) 40 mg IVP DAILY [facility] Last Admin: 05/16/17 11:03 Dose: 40 mg - Labs Labs: 05/15/17 06:13 05/16/17 06:10 Attending/Attestation - Attestation I have personally seen and examined this patient.: Yes I have fully participated in the care of the patient.: Yes I have reviewed all pertinent clinical information, including history, physical exam and plan: Yes Notes (Text): This patient was seen and evaluated here earlier. This is an addendum to the GE progress report dictated by Na Santoro APN MRI scan was reviewed. Plan watch the diet low-fat soft diet Discussed with patient at length base of outpatient follow-up GI clinic or the [facility] steamer As per her PCP 05/16/17 23:48
--- NOTE | 2017-05-16 14:28 | MRI ---
PROCEDURE: MRI Abdomen and MRCP with and without contrast HISTORY: Pancreatitis COMPARISON: CT dated 05/14/2017. TECHNIQUE: Multisequence, multiplanar MR images of the abdomen with and without gadolinium contrast enhancement. 15 cc of Omniscan FINDINGS: LIVER: Unremarkable. GALLBLADDER: The gallbladder and common bile duct are unremarkable. There are no stones visualized. No ductal dilatation. SPLEEN: Unremarkable. PANCREAS: The pancreatic duct is normal in caliber. There is no obvious pancreatic edema or swelling. Minimal residual fluid adjacent to the pancreas ADRENALS: Unremarkable. KIDNEYS: Unremarkable. AORTA: No aneurysm. ASCITES: None. PERITONEUM: Unremarkable. LYMPH NODES: Unremarkable. OTHER FINDINGS: None. IMPRESSION: No evidence of gallstones or common duct stones. The pancreas is unremarkable
--- NOTE | 2017-05-17 01:47 | PN ---
SUBJECTIVE: The patient is a 36-year-old male. The patient is seen and examined on the bedside. Looking comfortable. Abdominal pain is getting better. No nausea, vomiting, or diarrhea. NPO for MRCP/MRI today. No headache or dizziness. No hematuria, no hematochezia. PHYSICAL EXAMINATION VITAL SIGNS: Temperature 98.4, pulse 67, respirations 20, blood pressure 113/91, pulse ox 96%. HEENT: Head, normocephalic and atraumatic. Eyes, PERRLA, extraocular muscles intact. Conjunctivae clear. Nose patent. Mucous membranes moist. NECK: Supple. No carotid bruits, JVD, or thyromegaly. CHEST: Bilaterally symmetrical. HEART: S1, S2 positive. LUNGS: Clear to auscultation. ABDOMEN: Soft. Bowel sounds present. No organomegaly. EXTREMITIES: No edema, no cyanosis. NEUROLOGICAL: The patient is awake, alert. Moving all 4 extremities. No focal deficits. LABORATORY DATA: White blood cells 6.3, hemoglobin 15.2, hematocrit 45.5, platelets 188. Sodium 142, potassium 3.4, BUN 4, creatinine 0.8, glucose 95. MEDICATIONS: Hydrochlorothiazide, Dilaudid, NS, Cozaar, Zofran, Protonix. ASSESSMENT AND PLAN: The patient came with abdominal pain, acute pancreatitis, acute on chronic. CAT scan showing peripancreatic areas of streaking and mildly elevated pancreatic enzymes. Abdominal ultrasound is negative for gallstones. The patient went for MRCP. Discussion done with Dr. Peterson. He ordered food as tolerated. We will see trending amylase and lipase. MRCP shows no evidence of gallstones or common bile duct stones. Pancreas unremarkable. Advance diet as tolerated and we will the chart, plan according to that. We will follow up. Fouzia Castle MD
[2017-05-17 08:23] VITALS: TEMP 98.2; O2SAT 98
[2017-05-17 09:20] VITALS: BP 126/86; PULSE 62
--- NOTE | 2017-05-17 17:23 | CP.PCM.PN ---
<Na Santoro - Last Filed: 05/17/17 17:19> Subjective - Date & Time of Evaluation Date of Evaluation: 05/17/17 Time of Evaluation: 10:20 - Subjective Subjective: Seen and examined at the bedside earlier today, patient went for MRCP yesterday and unremarkable,reported some minimal fluid around the pancreas, there was no edema and dilatation, see [email or web address] for full report. Patient denies nausea, vomiting, or abdominal pain. He tolerated solids yesterday. No reports of overt GI bleeding. Objective - Vital Signs/Intake and Output Vital Signs (last 24 hours): Temp Pulse Resp BP Pulse Ox 98.2 F 62 20 126/86 98 05/17/17 08:22 05/17/17 09:15 05/17/17 08:22 05/17/17 09:15 05/17/17 08:22 Intake and Output: 05/17/17 05/17/17 06:59 18:59 Intake Total 360 Balance 360 - Labs Labs: 05/15/17 06:13 05/16/17 06:10 - Constitutional Appears: No Acute Distress - Head Exam Head Exam: NORMOCEPHALIC - Eye Exam Eye Exam: Normal appearance. absent: Scleral icterus - ENT Exam ENT Exam: Mucous Membranes Moist - Neck Exam Neck Exam: Normal Inspection - Respiratory Exam Respiratory Exam: Clear to Ausculation Bilateral, NORMAL BREATHING PATTERN. absent: Respiratory Distress - Cardiovascular Exam Cardiovascular Exam: +S1, +S2 - GI/Abdominal Exam GI & Abdominal Exam: Soft, Normal Bowel Sounds. absent: Guarding, Tenderness, Organomegaly, Rebound - Extremities Exam Extremities Exam: Normal Capillary Refill. absent: Calf Tenderness, Pedal Edema - Neurological Exam Neurological Exam: Alert, Awake, Oriented x3 - Skin Skin Exam: Dry, Warm Assessment and Plan - Assessment and Plan (Free Text) Assessment: Assessment: Resolved abdominal pain Acute pancreatitis, evident on CT scan showing peripancreatic areas of streaking and mildly elevated pancreatic enzymes. 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 Also abstain from alcohol Patient acknowledged understanding. Seen and discussed with Dr. Peterson. <Feliberto Peterson V - Last Filed: 05/17/17 23:37> Objective - Vital Signs/Intake and Output Vital Signs (last 24 hours): Temp Pulse Resp BP Pulse Ox 98.2 F 62 20 126/86 98 05/17/17 08:22 05/17/17 09:15 05/17/17 08:22 05/17/17 09:15 05/17/17 08:22 - Labs Labs: 05/15/17 06:13 05/16/17 06:10 Attending/Attestation - Attestation I have personally seen and examined this patient.: Yes I have fully participated in the care of the patient.: Yes I have reviewed all pertinent clinical information, including history, physical exam and plan: Yes Notes (Text): This is an addendum to GI progress report dictated by Na Santoro APN.The patient was seen and examined earlier. Medical records, lab studies, imagings were reviewed. Last 24 hours events reviewed. Agreed with the above treatment plan as outlined in Na Santoro NP's notes the with the addition of the following on examination abdomen was soft there's no tenderness MRI Scan reviewed patient was strictly advised to avoid alcohol advised to follow up with GI as per his iinsurance plan and pcp 05/17/17 23:36
== END 2017-05-17 11:18 | disposition home or self-care (01) | DRG 204 ==
LOC: ED 14:37 → ERH 15:31 → 3RNO 16:27
PROVIDERS: ADMIT Internal Medicine; ATTEND Internal Medicine
DX: K85.90 Acute pancreatitis without necrosis or infection, unspecified (principal); E87.6 Hypokalemia; I10 Essential (primary) hypertension; F17.210 Nicotine dependence, cigarettes, uncomplicated; E78.1 Pure hyperglyceridemia; K21.9 Gastro-esophageal reflux disease without esophagitis; Z91.14 Patient's other noncompliance with medication regimen

== ENCOUNTER 2018-08-29 23:59 | Emergency (ER) | payer BC, OTHER ==
[2018-08-30 00:31] VITALS: BMI 27.1
--- NOTE | 2018-08-30 00:31 | ED PDOC ---
Arrival/HPI - General Historian: Patient - History of Present Illness Narrative History of Present Illness (Text): 08/30/18 00:28 38 y/o male, pmh including htn, nkda, c/o rt. shoulder x 3 hours with no fall or trauma. Pt. stated that he does heavy lifting, got off from work couple hours ago, sleeping on the bed and turn around the bed, started to have rt. shoulder pain, aggravated by movement, no numbness or tingling, no rash, no other medical or psychological complaints. <José Luis Rojo - Last Filed: 08/30/18 01:40> Past Medical History - Provider Review Nursing Documentation Reviewed: Yes - Infectious Disease Hx of Infectious Diseases: None - Tetanus Immunization Tetanus Immunization: Unknown - Past Medical History Past Medical History: No Previous - Cardiac Hx Hypertension: Yes Other/Comment: stopped taking htn meds did not like the way they made him feel - Pulmonary Hx Asthma: Yes - HEENT Hx HEENT Disorder: Yes (eyeglasses) - Integumentary Other/Comment: lle skin discolorations - Musculoskeletal/Rheumatological Hx Falls: No - Gastrointestinal Hx Pancreatitis: Yes - Psychiatric Hx Depression: No Hx Emotional Abuse: No Hx Physical Abuse: No Hx Substance Use: No - Past Surgical History Past Surgical History: No Previous - Anesthesia Hx Anesthesia: No - Suicidal Assessment Feels Threatened In Home Enviroment: No <José Luis Rojo - Last Filed: 08/30/18 01:40> Family/Social History - Physician Review Nursing Documentation Reviewed: Yes Family/Social History: Unknown Family HX Smoking Status: Light Smoker < 10 Cigarettes Daily Hx Alcohol Use: Yes (ocasional) Hx Substance Use: No <José Luis Rojo - Last Filed: 08/30/18 01:40> Allergies/Home Meds <Miguelangel Cox - Last Filed: 08/30/18 00:56> <José Luis Rojo - Last Filed: 08/30/18 01:40> Allergies/Adverse Reactions: Allergies No Known Allergies Allergy (Verified 08/30/18 00:31) Home Medications: Home Meds Medication Instructions Recorded Confirmed Hydrochlorothiazide [Microzide] 1 tab PO DAILY 05/14/17 08/30/18 amLODIPine [Norvasc] 1 tab PO DAILY 05/14/17 08/30/18 Review of Systems - Review of Systems Constitutional: absent: Fatigue, Fevers Eyes: absent: Vision Changes ENT: absent: Hearing Changes, Rhinorrhea Respiratory: absent: SOB, Cough Cardiovascular: absent: Chest Pain Gastrointestinal: absent: Abdominal Pain, Nausea, Vomiting Musculoskeletal: Arthralgias, Myalgias. absent: Back Pain, Neck Pain, Joint Swelling Skin: absent: Rash, Pruritis Neurological: absent: Headache, Dizziness Psychiatric: absent: Anxiety, Depression, Suicidal Ideation <José Luis Rojo - Last Filed: 08/30/18 01:40> Physical Exam Vital Signs Temp Pulse Resp BP Pulse Ox 08/30/18 00:36 98.2 F 77 18 160/105 H 97 <Miguelangel Cox - Last Filed: 08/30/18 00:56> Pain Distress: Moderate - Systems Exam Head: Present: Atraumatic, Normocephalic Pupils: Present: PERRL Extroacular Muscles: Present: EOMI Conjunctiva: Present: Normal Mouth: Present: Moist Mucous Membranes Neck: Present: Normal Range of Motion Respiratory/Chest: Present: Clear to Auscultation, Good Air Exchange. No: Respiratory Distress, Accessory Muscle Use Cardiovascular: Present: Regular Rate and Rhythm, Normal S1, S2. No: Murmurs Abdomen: No: Tenderness, Distention, Peritoneal Signs Back: Present: Normal Inspection Upper Extremity: Present: Normal Inspection, Other (Rt. shoulder: +ttp on the rt. anterior shoulder joint line, no swelling, FROM without limitation, sensation intact, motor 5/5, +radial pulse, capillary refill< 2 seconds, neurovascular intact. ). No: Cyanosis, Edema Lower Extremity: Present: Normal Inspection. No: Edema Neurological: Present: GCS=15, CN II-XII Intact, Speech Normal Skin: Present: Warm, Dry, Normal Color. No: Rashes Psychiatric: Present: Alert, Oriented x 3, Normal Insight, Normal Concentration <José Luis Rojo - Last Filed: 08/30/18 01:40> Medical Decision Making - RAD Interpretation Radiology Orders: 08/30/18 00:32 SHOULDER RIGHT [RAD] Stat - Medication Orders Current Medication Orders: Discontinued Medications Ibuprofen (Motrin Tab) 600 mg PO STAT STA Stop: 08/30/18 00:33 Last Admin: 08/30/18 00:52 Dose: 600 mg MAR Pain/Vitals Document 08/30/18 00:52 IT (Rec: 08/30/18 00:52 IT [id number]) Pain Reassessment Is This A Pain ReAssessment? No Sleep Is patient sleeping during reassessment? No Presence of Pain Presence of Pain Yes Pain Scale Used Protocol: PSCALES Pain Scale Used Numeric Oxycodone/Acetaminophen (Percocet 5/325 Mg Tab) 1 tab PO STAT STA Stop: 08/30/18 00:33 Last Admin: 08/30/18 00:52 Dose: Not Given Non-Admin Reason: Patient Refused <Miguelangel Cox - Last Filed: 08/30/18 00:56> ED Course and Treatment: 08/30/18 00:30 -xray -motrin and percocet -Observe and reassess 08/30/18 01:31 -Rt. shoulder xray ER wet read: no fracture or dislocation. -Sling applied with neurovascular intact. -Pt. feels better, request to be discharged home, will discharge home. -Discharge home with [facility] [place], please follow up with the orthopedic and pmd within 2 days to see if additional imaging is needed, avoid strenuous exercise or activity, follow up with your pmd and orthopedic within 2 days, return to the ER for any new or worsening signs or symptoms. - RAD Interpretation Radiology Orders: Rt. shoulder xray: Motion Graphics Designer: Radiologist <José Luis Rojo - Last Filed: 08/30/18 01:40> - PA / CUSTOMER EXPERIENCE MANAGER / Resident Statement TANYA has reviewed & agrees with the documentation as recorded. <Miguelangel Cox - Last Filed: 08/30/18 00:56> - PA / CUSTOMER EXPERIENCE MANAGER / Resident Statement TANYA has reviewed & agrees with the documentation as recorded. <José Luis Rojo - Last Filed: 08/30/18 01:40> Disposition/Present on Arrival <Miguelangel Cox - Last Filed: 08/30/18 00:56> - Present on Arrival Any Indicators Present on Arrival: No History of DVT/PE: No History of Uncontrolled Diabetes: No Urinary Catheter: No History of Decub. Ulcer: No History Surgical Site Infection Following: None - Disposition Have Diagnosis and Disposition been Completed?: Yes Disposition Time: 01:39 Patient Plan: Discharge <José Luis Rojo - Last Filed: 08/30/18 01:40> - Disposition Diagnosis: Shoulder pain Disposition: HOME/ ROUTINE Condition: GOOD Additional Instructions: Discharge home with Mobic, sling, please follow up with the orthopedic and pmd within 2 days to see if additional imaging is needed, avoid strenuous exercise or activity, follow up with your pmd and orthopedic within 2 days, return to the ER for any new or worsening signs or symptoms. Prescriptions: Meloxicam [Mobic] 15 mg PO DAILY PRN #[id number] tab PRN Reason: Other Referrals: Goran Walsh DO [Staff Provider] - [place] up [place] primary [facility] [place] - Follow up with primary Forms: WORK NOTE
[2018-08-30] MEDS ORDERED: Oxycodone/Acetaminophen 5/325 mg Tab PO STA (00:32)
[2018-08-30 02:17] VITALS: BP 155/91; PULSE 72; RESP 17; TEMP 98.1; O2SAT 98
--- NOTE | 2018-08-30 10:25 | RAD ---
Date of service: 08/30/2018 PROCEDURE: Radiographs of the Right Shoulder HISTORY: rt. shoulder Pain. No history of recent/ related trauma provided COMPARISON: No prior. FINDINGS: BONES: Normal. No fracture. JOINTS: Normal. Glenohumeral and acromioclavicular joints preserved. No osteoarthritis. SOFT TISSUES: Normal. OTHER FINDINGS: None. IMPRESSION: Normal radiographs of the right shoulder. Concordant results with the preliminary interpretation rendered by the emergency department physician procedure.
== END 2018-08-30 01:50 | disposition home or self-care (01) ==
LOC: ED 23:59
DX: M25.511 Pain in right shoulder (principal)